=== PATIENT | female | born 1985 | race Caucasian/White ===

== ENCOUNTER 2016-09-08 00:27 | Emergency (ER) | payer OTHER ==
[~2016-09-08] VITALS: Ht 165.1 cm; Wt 56.8 kg
[~2016-09-08 00:27] MED LIST: ACET-1256 PO; BUDE1TAB PO; CPR500 PO; HYDR-5688 PO; MULT-506 PO; ONDA4TAB46 PO
[2016-09-08 00:42] VITALS: TEMP 36.8; Ht 165.1 cm; Wt 56.8 kg
[2016-09-08 01:27] LABS: HEMATOCRIT 35.2 % (37-47); MEAN CELL VOLUME 84.6 fL (80-100); MEAN CORPUSCULAR HEMOGLOBIN 29.1 pg (25-34); MEAN CORPUSCULAR HGB CONC 34.4 g/dl (32-36); PLATELET COUNT 368 K/uL (130-400); RED BLOOD COUNT 4.16 M/uL (4.2-5.4)
[2016-09-08 01:36] LABS: URINE APPEARANCE CLEAR (CLEAR); URINE BILIRUBIN NEG (NEG); URINE COLOR YELLOW; URINE NITRITE NEG (NEG); URINE PH 7.5 (4.5-7.5); UROBILINOGEN NEG (NEG)
[2016-09-08 01:41] LABS: MANUAL MICROSCOPIC REQUIRED? NO; REVIEW REQ? NO
[2016-09-08 01:48] LABS: BUN/CREATININE RATIO 16.1 (10-20); CALCIUM 9.6 mg/dl (8.5-10.1); CREATININE 0.68 mg/dl (0.60-1.20); POTASSIUM 3.7 mmol/L (3.5-5.1)
[2016-09-08 01:50] LABS: ALB/GLOB RATIO 0.9 (0.9-2)
[2016-09-08 01:52] LABS: INR 0.9 (0.9-1.1); PARTIAL THROMBOPLASTIN RATIO 1.1
--- NOTE | 2016-09-08 02:10 | DIAGNOSTIC IMAGING REPORT ---
ULTRASOUND OF THE PELVIS CLINICAL HISTORY: Vaginal bleeding. COMPARISON STUDY: Pelvic CT dated 06/16/2015. Pelvic MRI dated 05/17/2016. TECHNIQUE: Real-time, grayscale, and color flow sonography of the pelvis is performed both transabdominally and endovaginally. Images are reviewed in the transverse and longitudinal planes. FINDINGS: Uterus: The uterus is normal in size and echotexture, measuring 8.3 x 3.5 x 4.2 cm. Endometrium: The endometrium appears thickened and slightly heterogeneous, measuring up to 1.1 cm. There is trace fluid within the endometrial canal. Ovaries: The ovaries are normal in size and morphology. The right ovary measures 2.2 x 1.0 x 1.4 cm and the left ovary measures 1.9 x 1.7 x 2.5 cm. There are bilateral ovarian follicles. A round complex structure is seen in the left ovary measures up to 1.8 cm. This is indeterminate but appears to demonstrate internal flow on color imaging. Normal Doppler waveforms are shown within both ovaries. Pelvis: There is trace free fluid in the cul-de-sac. No concerning adnexal lesion is seen. IMPRESSION: 1. No acute sonographic amount is seen in the pelvis. 2. Trace free fluid is likely within physiologic limits. 3. There is an indeterminant 1.8 cm complex structure in the left ovary which appears to demonstrate internal flow. This is atypical for a complex/hemorrhagic follicle, and could potentially represent an endometrioma. A 3 month follow-up ultrasound is recommended for reassessment. Electronically signed by: Filiberto Peres M.D. 09/08/2016 2:08 AM Dictated Date/Time: 09/08/2016 2:02 AM
[2016-09-08 02:15] LABS: BASO % 0.4 %; BASO ABS # 0.04 K/uL (0-0.2); COMPLETE YES; EOS % 4.1 %; IG% 0.4 %; LYMPH ABS # 2.91 K/uL (1.2-3.4); MONO % 6.1 %
[2016-09-08 03:50] VITALS: BP 114/63; PULSE 72; O2SAT 98
--- NOTE | 2016-09-08 05:09 | GYNECOLOGICAL CONSULTATION ---
DATE OF CONSULTATION: 09/08/2016 HISTORY OF PRESENT ILLNESS: Nakia is a 31-year-old woman who presents to the ER with cramping and bleeding. The symptoms began early this evening initially with light spotting and then progressing to significant cramping. The cramping was midline and did not favor one side. The bleeding then progressed to passing clots and these are darker in color. At the time I have assessed her, her bleeding has somewhat decreased and her pain is significantly decreased. This is Nakia's first and had been uncomplicated prior to this evening. Her blood type is Rh positive, specifically A positive. She has, as mentioned, never been and has no past issues. PAST MEDICAL HISTORY: Significant for 2 issues. 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 She is not on current therapy and has never been on chemo or radiation or had surgery for this. She also has a diagnosis of Crohn's disease and is followed for this. She is not currently on medication for this. SOCIAL HISTORY: She is , nonsmoker, nondrinker. MEDICATIONS: vitamins. DRUG ALLERGIES: NICKEL. FAMILY HISTORY: Noncontributory. PHYSICAL EXAMINATION: VITAL SIGNS: Stable. She is afebrile. CHEST: Clear. CARDIOVASCULAR: Normal rate and rhythm. No audible murmur. ABDOMEN: Benign. She has no significant tenderness. No peritoneal irritation. No rebound and no masses are palpated. PELVIC: Done with nursing, reveals normal external genitalia. There is some dark blood on the outside of the vagina. Speculum exam is performed. On visualization of the cervix, there is some tissue in the cervix. This was grasped with a ring forceps, the tissue was sent to pathology. Cervix does show some dark bleeding from it, but there is certainly no hemorrhage going on. Bimanual exam reveals no tenderness in either adnexa and no cervical motion tenderness. Uterus is normal size. IMPRESSION AND PLAN: Reviewed. IMAGING AND LABORATORY DATA: Her quantitative hCG is 1817. Her ultrasound reveals a lining of 1.1 cm with no fetus in it. There is a small mass on the left ovary measuring 1.8 cm. There are no other masses in the adnexa; per radiology, possible complex hemorrhagic follicle versus endometrioma, no heart rate is noted in the adnexa. IMPRESSION AND PLAN: I believe we have removed tissue from the cervix. I think she is in the process of miscarriage. I did review the remote possibility of this being an ectopic ; however, I think the mass on the ovary does not represent this and certainly with the amount of bleeding she is having and as well with the tissue removed from the cervix, I think this is just a process of completion of miscarriage. She does not need RhoGAM as she is Rh positive. We will arrange for followup in the office with a quantitative hCG on Saturday, and I will see her on Saturday for a followup appointment. She was advised to call our answering service if there are any problems prior to this. MARCK
--- NOTE | 2016-09-08 05:35 | EMERGENCY ROOM VISIT NOTE ---
History First contact with patient: 01:06 Chief Complaint: VAGINAL BLEEDING Stated Complaint: MISCARRIAGE History of Present Illness The patient is a 31 year old female who presents to the Emergency Room with complaints of vaginal bleeding and cramping for the past few hours who is 7 weeks . This is her first . She follows at [facility]. Patient states she started bleeding a few hours ago. Patient denies chest pain , dyspnea, fever, chills, weakness. No prior pregnancies. Review of Systems See HPI for pertinent positives & negatives. A total of 10 systems reviewed and were otherwise negative. Past Medical/Surgical History Medical Problems: (1) Crohns disease (2) Liver mass (3) Lung nodule Social History Smoking Status: Former Smoker Alcohol Use: occasionally Marital Status: Housing Status: lives with significant other Occupation Status: employed Current/Historical Medications No Active Prescriptions or Reported Meds Allergies Coded Allergies: Nickel (Verified Allergy, Mild, RASH, 09/08/16) Physical Exam Vital Signs Date Time Temp Pulse Resp B/P Pulse Ox O2 Delivery O2 Flow Rate FiO2 09/08/16 03:50 72 18 114/63 98 09/08/16 02:15 68 18 114/63 98 Room Air 09/08/16 00:42 36.8 70 16 128/61 100 Room Air Pain Rating (0-10): 0 Physical Exam VITALS: Vitals are noted on the nurse's note and reviewed by myself. Vital signs stable. GENERAL: Pleasant anxious-appearing female, in no acute distress, nondiaphoretic , well-developed well-nourished. SKIN: Capillary reflex less than 2 seconds. HEENT: Normocephalic. PERRLA. EOMI. Nares patent. Mucous membranes moist. Neck is supple without nuchal rigidity. HEART: Regular rate and rhythm without murmurs gallops or rubs. LUNGS: Clear to auscultation bilaterally without wheezes, rales or rhonchi. No retractions or accessory muscle use. ABDOMEN: Positive bowel sounds x 4. Normal tympanic percussion. Soft, nontender, without masses or organomegaly. Bowers sign negative. No guarding or rebound tenderness. MUSCULOSKELETAL: No gross musculoskeletal defects. NEURO: Patient was alert and oriented to person place and time. Normal sensation to light and sharp touch. No focal neurological deficits. Medical Decision & Procedures Laboratory Results 09/08/16 01:09 Red Blood Count 4.16, Mean Corpuscular Volume 84.6, Mean Corpuscular Hemoglobin 29.1, Mean Corpuscular Hemoglobin Concent 34.4, Mean Platelet Volume 9.0, Neutrophils (%) (Auto) 59.0, Lymphocytes (%) (Auto) 30.0, Monocytes (%) (Auto) 6.1, Eosinophils (%) (Auto) 4.1, Basophils (%) (Auto) 0.4, Neutrophils # (Auto) 5.72, Lymphocytes # (Auto) 2.91, Monocytes # (Auto) 0.59, Eosinophils # (Auto) 0.40, Basophils # (Auto) 0.04 09/08/16 01:09 Test 09/08/16 01:05 09/08/16 01:09 Urine Color YELLOW Urine Appearance CLEAR (CLEAR) Urine pH 7.5 (4.5-7.5) Urine Specific Sargent 1.000 (1.000-1.030) Urine Protein NEG (NEG) Urine Glucose (UA) NEG (NEG) Urine Ketones NEG (NEG) Urine Occult Blood 3+ (NEG) Urine Nitrite NEG (NEG) Urine Bilirubin NEG (NEG) Urine Urobilinogen NEG (NEG) Urine Leukocyte Esterase NEG (NEG) Urine WBC (Auto) 0 /hpf (0-5) Urine RBC (Auto) >30 /hpf (0-4) Urine Hyaline Casts (Auto) 0 /lpf (0-5) Urine Epithelial Cells (Auto) 5-10 /lpf (0-5) Urine Bacteria (Auto) NEG (NEG) White Blood Count 9.70 K/uL (4.8-10.8) Red Blood Count 4.16 M/uL (4.2-5.4) Hemoglobin 12.1 g/dL (12.0-16.0) Hematocrit 35.2 % (37-47) Mean Corpuscular Volume 84.6 fL (80-100) Mean Corpuscular Hemoglobin 29.1 pg (25-34) Mean Corpuscular Hemoglobin Concent 34.4 g/dl (32-36) Platelet Count 368 K/uL (130-400) Mean Platelet Volume 9.0 fL (7.4-10.4) Neutrophils (%) (Auto) 59.0 % Lymphocytes (%) (Auto) 30.0 % Monocytes (%) (Auto) 6.1 % Eosinophils (%) (Auto) 4.1 % Basophils (%) (Auto) 0.4 % Neutrophils # (Auto) 5.72 K/uL (1.4-6.5) Lymphocytes # (Auto) 2.91 K/uL (1.2-3.4) Monocytes # (Auto) 0.59 K/uL (0.11-0.59) Eosinophils # (Auto) 0.40 K/uL (0-0.5) Basophils # (Auto) 0.04 K/uL (0-0.2) RDW Standard Deviation 37.5 fL (36.4-46.3) RDW Coefficient of Variation 12.1 % (11.5-14.5) Immature Granulocyte % (Auto) 0.4 % Immature Granulocyte # (Auto) 0.04 K/uL (0.00-0.02) Red Blood Cell Morphology Unremarkable Prothrombin Time 10.0 SECONDS (9.0-12.0) Prothromb Time International Ratio 0.9 (0.9-1.1) Activated Partial Thromboplast Time 27.7 SECONDS (21.0-31.0) Partial Thromboplastin Ratio 1.1 Anion Gap 9.0 mmol/L (3-11) Est Creatinine Clear Calc Drug Dose 109.5 ml/min Estimated GFR () 137.0 Estimated GFR (Non- 118.2 BUN/Creatinine Ratio 16.1 (10-20) Calcium Level 9.6 mg/dl (8.5-10.1) Total Bilirubin 0.1 mg/dl (0.2-1) Aspartate Amino Transf (AST/SGOT) 10 U/L (15-37) Alanine Aminotransferase (ALT/SGPT) 21 U/L (12-78) Alkaline Phosphatase 79 U/L (45-117) Total Protein 7.8 gm/dl (6.4-8.2) Albumin 3.6 gm/dl (3.4-5.0) Globulin 4.2 gm/dl (2.5-4.0) Albumin/Globulin Ratio 0.9 (0.9-2) Human Chorionic Gonadotropin, Quant 1817 mIU/mL ED Course Prior records/ancillary studies reviewed. Triage Nursing notes reviewed. Additional history obtained from the family. The patient's history was concerning for vaginal bleeding and abdominal pain. Differential diagnosis: Etiologies such as ectopic , dysfunction uterine bleeding, bleeding dyscrasia, trauma, infection, as well as others were entertained. Physical examination: As above. Vitals signs revealed stable. ER treatment provided: IV fluids On reassessment the patient felt better. Diagnostic interpretation by me: The labs revealed the patient to the Rh A+. CBC, coagulation studies, and chemistries were unremarkable. Urine test was +. Urinalysis revealed no sign of infection. Quantitative hCG was 1800 Imaging studies: Ultrasound as above ULTRASOUND OF THE PELVIS CLINICAL HISTORY: Vaginal bleeding. COMPARISON STUDY: Pelvic CT dated 06/16/2015. Pelvic MRI dated 05/17/2016. TECHNIQUE: Real-time, grayscale, and color flow sonography of the pelvis is performed both transabdominally and endovaginally. Images are reviewed in the transverse and longitudinal planes. FINDINGS: Uterus: The uterus is normal in size and echotexture, measuring 8.3 x 3.5 x 4.2 cm. Endometrium: The endometrium appears thickened and slightly heterogeneous, measuring up to 1.1 cm. There is trace fluid within the endometrial canal. Ovaries: The ovaries are normal in size and morphology. The right ovary measures 2.2 x 1.0 x 1.4 cm and the left ovary measures 1.9 x 1.7 x 2.5 cm. There are bilateral ovarian follicles. A round complex structure is seen in the left ovary measures up to 1.8 cm. This is indeterminate but appears to demonstrate internal flow on color imaging. Normal Doppler waveforms are shown within both ovaries. Pelvis: There is trace free fluid in the cul-de-sac. No concerning adnexal lesion is seen. IMPRESSION: 1. No acute sonographic amount is seen in the pelvis. 2. Trace free fluid is likely within physiologic limits. 3. There is an indeterminant 1.8 cm complex structure in the left ovary which appears to demonstrate internal flow. This is atypical for a complex/hemorrhagic follicle, and could potentially represent an endometrioma. A 3 month follow-up ultrasound is recommended for reassessment. Electronically signed by: Filiberto Peres M.D. 09/08/2016 2:08 AM Consultation: A consultation was placed with the cupola patcher physician, Dr. Porras. The case was discussed and diagnostics were reviewed. He believes that the patient is miscarrying. He does not think there is no ectopic . Please see his dictation for further information regarding history and plan. This appears to be consistent with incomplete miscarriage. Patient will be followed up by OB this week. She is advised to return to the immediate for heavy bleeding, pain, fevers, worsening signs or symptoms or as needed. By the evaluation outlined above emergent etiologies such as bleeding dyscrasia, ectopic , trauma, as well as others were deemed relatively unlikely. The pt informed about the findings as listed above. All questions were answered and pleased with the treatment. Return instructions were outlined and the patient was discharged in stable condition. Referral: The patient was referred to [facility] T[facility]AS[facility] for follow-up in 2 to 3 days for a recheck of her current condition. Case reviewed with my attending Medical Decision As below Impression Primary Impression: Incomplete miscarriage Departure Information Dispostion Home / Self-Care Condition GOOD Prescriptions No Active Prescriptions or Reported Meds Forms WORK / SCHOOL INSTRUCTIONS, HOME CARE DOCUMENTATION FORM, IMPORTANT VISIT INFORMATION Patient Instructions Miscarriage Nm, [facility] Additional Instructions Have your blood drawn on Saturday. Keep your appointment as scheduled with OB/ APPLICATION ARCHITECT MANAGER. Ibuprofen(Motrin, Advil) may be used for fever or pain. Use 600mg every six hours as needed. Take with food. Avoid using more than 2400mg in a 24 hour period. Do not use 2400mg per day for more than three consecutive days without physician direction. Prolonged inappropriate use can lead to stomach upset or ulcers. (AND/OR) Acetaminophen(Tylenol) may be used for fever or pain. Use 1000mg every six hours as needed. Avoid using more than 3000mg in a 24 hour period. Rest and drink plenty of fluids as tolerated. Continue current medications. Avoid strenuous activities and anything that worsens your pain. Resume normal activities once your symptoms resolve. Return to the ER immediately for worsening or persistent heavy vaginal bleeding , pelvic pain, abdominal pain, vomiting, fevers, chest pains, difficulty breathing, worsening of your condition, or as needed. Follow up with your COUNTY TREASURER in 2-3 days for a recheck of your current condition.
== END 2016-09-08 03:50 | disposition home or self-care (01) ==
LOC: EDBD 00:27 → C.EDB 00:29
DX: O03.30 Unspecified complication following incomplete spontaneous abortion (principal); Z3A.01 Less than 8 weeks gestation of pregnancy; K50.90 Crohn's disease, unspecified, without complications; R16.0 Hepatomegaly, not elsewhere classified; R91.1 Solitary pulmonary nodule; Z87.891 Personal history of nicotine dependence; Z91.09 Other allergy status, other than to drugs and biological substances

== ENCOUNTER → 2016-09-10 | Outpatient (CLI) | payer OTHER | END | disposition home or self-care (01) | LOC: C.LAB1850 13:38 | PROVIDERS: ATTEND Obstetrics & Gynecology | DX: O02.1 Missed abortion (principal) ==

== ENCOUNTER → 2016-09-13 | Outpatient (CLI) | payer OTHER | END | disposition home or self-care (01) | LOC: C.LAB1850 12:27 | PROVIDERS: ATTEND Obstetrics & Gynecology | DX: O02.1 Missed abortion (principal) ==

== ENCOUNTER → 2016-09-27 | Outpatient (CLI) | payer OTHER ==
[~2016-09-27] MED LIST changes: -ACET-1256 PO; -BUDE1TAB PO; -CPR500 PO; -HYDR-5688 PO; +MAGNEVIST IV PRN; -MULT-506 PO; -ONDA4TAB46 PO; +OPTIRAY 320 IV PRN
--- NOTE | 2016-09-27 14:13 | DIAGNOSTIC IMAGING REPORT ---
MRI OF THE ABDOMEN COMBO CLINICAL HISTORY: Hepatic lesions.. COMPARISON STUDY: 05/17/2016. TECHNIQUE: MRI of the abdomen is performed transverse T1 and T2-weighted sequences in the axial and coronal planes. Contrast enhanced sequences were acquired following the IV administration of 20 cc Magnevist. FINDINGS: Lower chest: No pleural effusion is identified. The heart is normal in size. Liver: Multiple hepatic densities and/or lesions are unchanged. Signal characteristics on all images. Similar compared to the prior study. There is no new interval or progressive process. Enhancement characteristics are similar. Pancreas is unremarkable. Kidneys demonstrate a small cortical cyst lower pole right kidney but are otherwise unremarkable. The adrenal glands are unremarkable. Limited visibility of the lower abdominal and upper pelvic bowel pattern suggests a potential developing small bowel obstructive change and or distention. Reference is made to MRI of the pelvis as further evaluation. Gallbladder: Unremarkable. Spleen: Normal in size and signal intensity. Pancreas: Unremarkable. Adrenal glands: Unremarkable. Peritoneum: Trace ascites within the paracolic gutter regions Lymphadenopathy: None. Skeletal structures: Visualized skeletal structures times are normal marrow signal intensity. IMPRESSION: 1. Unchanged hepatic masses. 2. No change in size, configuration, or. Behavioral characteristics of the hepatic lesions. 3. Interval small bowel distention and/or partial small bowel obstruction with reference made to MRI of the pelvis as follow-up 4. Trace ascites within the paracolic gutters Electronically signed by: Jeremy Nash M.D. 09/27/2016 2:12 PM Dictated Date/Time: 09/27/2016 2:02 PM
--- NOTE | 2016-09-27 14:25 | DIAGNOSTIC IMAGING REPORT ---
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 An MRI of the upper abdomen will be reported separately. There are significantly dilated distal small bowel loops. There is bowel wall thickening involving the distal ileum. There is a distal ileal stricture measuring 4 cm in length. The findings are consistent with the history of Crohn's disease. There are no abnormal adnexal masses. No uterine abnormalities are visualized. There are no pathologically enlarged pelvic lymph nodes. There is no pathologic marrow replacement. IMPRESSION: 1. Thick walled terminal ileum with a distal ileal stricture. This results in a partial small bowel obstruction with dilatation of the more proximal small bowel with loops measuring up to 4 cm. The findings are consistent with the patient's known Crohn's disease. Electronically signed by: Mauri Cevallos M.D. 09/27/2016 2:23 PM Dictated Date/Time: 09/27/2016 2:15 PM
--- NOTE | 2016-09-27 16:07 | DIAGNOSTIC IMAGING REPORT ---
CT OF THE CHEST WITH IV CONTRAST CLINICAL HISTORY: Hepatic epithelioid hemangioendothelioma. COMPARISON STUDY: Chest CT May 17, 2016. TECHNIQUE: Following IV administration of 93 mL of Optiray-320, helical axial images of the chest were obtained. Images were viewed in the axial, sagittal and coronal planes. IV contrast was administered without complication. CT DOSE: 219.67 mGy.cm FINDINGS: Innumerable pulmonary nodules are unchanged since exam of May 14, 2016. An index right lower lobe nodule shown image 39 of 70 measures 7 mm. An index left lower lobe nodule shown image 42 measures 7 mm. No new nodules are identified. There is no thoracic lymphadenopathy. The size of the heart is normal. There is no pericardial effusion. Several hypodense hepatic lesions are similar to prior exam of May 17, 2016. An index right hepatic lobe lesion shown on image 64 measures 2.3 cm. A index segment 4A lesion shown on image 53 measures 2.8 cm. There is a suspected small amount of ascites along inferior right hepatic lobe. No suspicious osseous lesions are present. IMPRESSION: 1. No significant change in innumerable pulmonary metastases since CT of May 17, 2016. 2. No significant change in multiple hypodense hepatic lesions. 3. No thoracic lymphadenopathy. 4. Suspected small amount of perihepatic ascites. Electronically signed by: Pete Quintero M.D. 09/27/2016 4:06 PM Dictated Date/Time: 09/27/2016 12:57 PM
== END | disposition home or self-care (01) ==
LOC: C.CTS 12:37
PROVIDERS: ATTEND Family Medicine
DX: C49.9 Malignant neoplasm of connective and soft tissue, unspecified (principal); K63.89 Other specified diseases of intestine; R18.8 Other ascites

== ENCOUNTER → 2016-10-02 | Outpatient (CLI) | payer OTHER | END | disposition home or self-care (01) | LOC: C.LAB1850 10:00 | PROVIDERS: ATTEND Obstetrics & Gynecology | DX: O03.9 Complete or unspecified spontaneous abortion without complication (principal) ==

== ENCOUNTER → 2017-01-04 | Outpatient (CLI) | payer OTHER ==
[2017-01-04 11:16] LABS: URINE APPEARANCE CLEAR (CLEAR); URINE BILIRUBIN NEG (NEG); URINE COLOR YELLOW; URINE EPITHELIAL CELL AUTO 20-30 /lpf (0-5); URINE NITRITE NEG (NEG); URINE PH 6.5 (4.5-7.5); UROBILINOGEN NEG (NEG)
[2017-01-04 11:17] LABS: MANUAL MICROSCOPIC REQUIRED? NO; REVIEW REQ? NO
[2017-01-04 12:43] LABS: BASO % 0.4 %; BASO ABS # 0.03 K/uL (0-0.2); COMPLETE YES; EOS % 2.2 %; HEMATOCRIT 36.8 % (37-47); IG% 0.2 %; LYMPH % 15.6 %; MEAN CORPUSCULAR HEMOGLOBIN 28.5 pg (25-34); MEAN PLATELET VOLUME 9.6 fL (7.4-10.4); MONO % 8.2 %; NEUT % 73.4 %; PLATELET COUNT 330 K/uL (130-400); RED BLOOD COUNT 4.38 M/uL (4.2-5.4); WHITE BLOOD COUNT 8.31 K/uL (4.8-10.8)
== END | disposition home or self-care (01) ==
LOC: C.LAB1850 10:44
PROVIDERS: ATTEND Obstetrics & Gynecology
DX: O09.291 Supervision of pregnancy with other poor reproductive or obstetric history, first trimester (principal); Z3A.00 Weeks of gestation of pregnancy not specified

== ENCOUNTER → 2017-01-04 | Outpatient (CLI) | payer OTHER ==
[2017-01-07 23:49] LABS: CHLAMYDIA TRACH RNA*** NOT DETECTED (NOT DETECTED); GC (NEIS GONORRHOEAE)RNA** NOT DETECTED (NOT DETECTED)
== END | disposition home or self-care (01) ==
LOC: C.LABSPEC 13:42
PROVIDERS: ATTEND Obstetrics & Gynecology
DX: O09.291 Supervision of pregnancy with other poor reproductive or obstetric history, first trimester (principal); Z3A.00 Weeks of gestation of pregnancy not specified

== ENCOUNTER → 2017-02-12 | Outpatient (CLI) | payer OTHER ==
--- NOTE | 2017-02-12 10:37 | DIAGNOSTIC IMAGING REPORT ---
ULTRASOUND RIGHT UPPER QUADRANT ABDOMEN CLINICAL HISTORY: Sarcoma. COMPARISON STUDY: Abdominal CT dated 06/16/2015. Abdominal MRI dated 09/27/16. TECHNIQUE: Real-time, grayscale, and color flow sonography of the right upper quadrant of the abdomen was performed. Images are reviewed in the transverse and longitudinal planes. FINDINGS: Liver: The liver is normal in size and echotexture. There is no intrahepatic biliary ductal dilatation. The main portal vein is patent. There are 2 subtle hepatic lesions identified. A lesion in the medial left lobe measures up to 3.2 cm, and a lesion in the anterior right lobe measures up to 1.9 cm. These are likely unchanged from the 09/27/2016 MRI with differences in technique are taken into account. There is no sonographic evidence of progressive disease. Gallbladder: The gallbladder is normal in appearance. No gallstones are identified. There is no gallbladder wall thickening or pericholecystic fluid. A sonographic Bowers's sign is reportedly absent. The common bile duct measures up to 0.2 cm in diameter. Pancreas: Visualized portions of the pancreatic head and body are normal in appearance. Right kidney: Survey images of the right kidney demonstrate normal size and echotexture. There is no hydronephrosis. Ascites: None. IMPRESSION: 1. There are 2 subtle hepatic lesions identified, likely unchanged from the 09/27/2016 MRI when differences in technique are taken into account. There is no sonographic evidence of progressive disease. 2. No gallstones are identified. Electronically signed by: Filiberto Peres M.D. 02/12/2017 10:35 AM Dictated Date/Time: 02/12/2017 10:21 AM
== END | disposition home or self-care (01) ==
LOC: C.ULTR 09:28
PROVIDERS: ATTEND Family Medicine
DX: C49.9 Malignant neoplasm of connective and soft tissue, unspecified (principal); K76.9 Liver disease, unspecified

== ENCOUNTER → 2017-03-01 | Outpatient (CLI) | payer OTHER ==
[2017-03-01 12:14] LABS: GTGD 50 Grams
== END | disposition home or self-care (01) ==
LOC: C.LAB1850 10:35
PROVIDERS: ATTEND Obstetrics & Gynecology
DX: O09.291 Supervision of pregnancy with other poor reproductive or obstetric history, first trimester (principal); Z3A.00 Weeks of gestation of pregnancy not specified

== ENCOUNTER → 2017-05-17 | Outpatient (CLI) | payer OTHER ==
[2017-05-17 11:05] LABS: URINE APPEARANCE CLEAR (CLEAR); URINE BILIRUBIN NEG (NEG); URINE COLOR YELLOW; URINE EPITHELIAL CELL AUTO >30 /lpf (0-5); URINE NITRITE NEG (NEG); URINE SPECIFIC GRAVITY 1.009 (1.000-1.030); UROBILINOGEN NEG (NEG)
[2017-05-17 11:09] LABS: MANUAL MICROSCOPIC REQUIRED? NO; REVIEW REQ? NO
[2017-05-17 13:09] LABS: HEMATOCRIT 32.7 % (37-47)
[2017-05-17 14:13] LABS: GTGD 50 Grams
== END | disposition home or self-care (01) ==
LOC: C.LAB1850 09:53
PROVIDERS: ATTEND Obstetrics & Gynecology
DX: O09.292 Supervision of pregnancy with other poor reproductive or obstetric history, second trimester (principal)

== ENCOUNTER 2017-08-09 05:56 | Inpatient (IN) | payer OTHER ==
[~2017-08-09] VITALS: Ht 162.6 cm; Wt 80.0 kg
[2017-08-09] MEDS ORDERED: LACTATED RINGER'S 1000ML 1,000 ML IV PRN (06:45)
[2017-08-09] MEDS ORDERED: PENICILLIN G POTASSIUM IV 6 MU in DEXTROSE 5% 250ML 250 ML IV ONE (06:45)
[2017-08-09] MEDS ORDERED: MISOPROSTOLTAB 50 MCG TAB PO PRN (06:45)
[2017-08-09] MEDS ORDERED: PRENTAB26 PO (06:55)
[2017-08-09] MEDS ORDERED: LACTATED RINGER'S 1000ML 500 ML IV PRN ×2 (06:59→17:55)
[2017-08-09] MEDS ORDERED: MAGN400T6 PO (07:00)
[2017-08-09] MEDS ORDERED: CYAN100T PO (07:01)
[2017-08-09] MEDS ORDERED: OMEG10007 PO (07:01)
[2017-08-09] MEDS ORDERED: DOXY25TA7 (07:05)
[2017-08-09] MEDS ORDERED: MISCCAP80 (07:05)
[2017-08-09] MEDS ORDERED: FERR1TAB23 (07:05)
[2017-08-09] MEDS ORDERED: DIGE1CAP10 (07:05)
[2017-08-09] MEDS ORDERED: ZINC1CAP PO (07:05)
[2017-08-09] MEDS ORDERED: GARL1CAP6 (07:05)
[2017-08-09] MEDS ORDERED: CHOL1000 PO (07:05)
[2017-08-09] MEDS ORDERED: PYRI100T4 PO (07:05)
[2017-08-09] MEDS ORDERED: FLAX10007 (07:05)
[2017-08-09 07:06] VITALS: Ht 162.6 cm; Wt 80.0 kg
[2017-08-09 07:12] LABS: HEMATOCRIT 34.7 % (37-47); MEAN CELL VOLUME 86.1 fL (80-100); MEAN CORPUSCULAR HEMOGLOBIN 29.5 pg (25-34); MEAN CORPUSCULAR HGB CONC 34.3 g/dl (32-36); MEAN PLATELET VOLUME 9.2 fL (7.4-10.4); PLATELET COUNT 244 K/uL (130-400); RED BLOOD COUNT 4.03 M/uL (4.2-5.4); WHITE BLOOD COUNT 10.64 K/uL (4.8-10.8)
[2017-08-09] MEDS: LACTATED RINGER'S 1000ML 1,000 ML IV SCH ×3 (07:41→18:06)
[2017-08-09] MEDS: OXYTOCIN 30 UNITS/500ML NSS IV PRN (07:47)
[2017-08-09] MEDS: PENICILLIN G POTASSIUM IV 3 MU in DEXTROSE 5% 100ML 100 ML IV PRN ×4 (12:07→23:59)
[2017-08-09] MEDS ORDERED: FENTANYL 2MCG/ML ROPIV 1.25MG/ML 100ML BAG EPI ONE (15:29)
[2017-08-09] MEDS ORDERED: BUPIVACAINE 0.25% 30 ML VIAL ONE (15:29)
[2017-08-09] MEDS ORDERED: EpHEDrine SULFATE INJ 50 MG/ML AMP ONE (15:29)
[2017-08-09] MEDS ORDERED: FENTANYL CITRATE INJ 50 MCG/1 ML 2 ML VIAL ONE (15:30)
[2017-08-09] MEDS ORDERED: NALOXONE HCL INJ 1 MG in SODIUM CHLORIDE 0.9% 1000ML 1,000 ML IV PRN (17:55)
[2017-08-09] MEDS ORDERED: NALOXONE HCL INJ 0.4 MG/1 ML VIAL/CARP IV PRN (18:00)
[2017-08-09] MEDS ORDERED: NALBUPHINE HCL INJ 10 MG/ML AMP IV PRN (18:00)
[2017-08-09] MEDS ORDERED: ONDANSETRON INJ 2 MG/ML 2 ML VIAL IV PRN (18:00)
[2017-08-09] MEDS ORDERED: EpHEDrine SULFATE INJ 50 MG/ML AMP IV PRN (18:00)
[2017-08-09] MEDS ORDERED: DiphenhydrAMINE HCL 50 MG/ML VIAL IV PRN (18:00)
[2017-08-09] MEDS ORDERED: PROMETHAZINE HCL INJ 25 MG in SODIUM CHLORIDE 0.9% 50ML 50 ML IV PRN (18:00)
[2017-08-09] MEDS: FENTANYL 2MCG/ML ROPIV 1.25MG/ML 100ML BAG EPI PRN (18:55)
[2017-08-10] VITALS (16 sets, daily range): BP systolic 114–121; BP diastolic 56–74; PULSE 59–74; TEMP 36.4–36.8; O2SAT 96–98
[2017-08-10] MEDS: FENTANYL 2MCG/ML ROPIV 1.25MG/ML 100ML BAG EPI PRN ×2 (01:30→06:59)
[2017-08-10] MEDS: LACTATED RINGER'S 1000ML 1,000 ML IV SCH (03:36)
[2017-08-10] MEDS: PENICILLIN G POTASSIUM IV 3 MU in DEXTROSE 5% 100ML 100 ML IV PRN (04:01)
[2017-08-10] MEDS: OXYTOCIN 30 UNITS/500ML NSS IV PRN (05:50)
[2017-08-10] MEDS ORDERED: CEFAZOLIN IV 2,000 MG in SYRINGE 0 ML IV SCH (06:00)
[2017-08-10] MEDS ORDERED: LACTATED RINGER'S 1000ML 1,000 ML IV ONE (06:52)
[2017-08-10] MEDS ORDERED: CITRIC ACID/SODIUM CITRATE 15 ML UDC PO ONE (07:00)
[2017-08-10] MEDS ORDERED: LIDOCAINE/EPINEPHRINE 2% 1:200,000 20 ML SDV ONE (07:20)
[2017-08-10] MEDS ORDERED: MORPHINE SULFATE PF 2MG/2ML SYR ONE (07:20)
[2017-08-10] MEDS ORDERED: MORPHINE SULFATE 1MG/1ML 30ML VIAL IV ONE (07:25)
--- NOTE | 2017-08-10 07:40 | HISTORY & PHYSICAL EXAMINATION ---
DATE OF ADMISSION: 08/09/2017 HISTORY OF PRESENT ILLNESS: Nakia presented for Dr. Montgomery, the shift prior to mine, with ruptured membranes. She was not actively mike, so Pitocin was started. Her cervix was long, thick and closed. Eventually, her cervix dilated to 1 cm; however, the contractions were difficult to monitor, so an IUPC was placed. The patient was group B strep positive, so antibiotics were started. Adequate Pitocin contractions were documented and the patient did reach 3-4 cm at 2:30 in the morning on August 10; however, by 7:00 in the morning, she was still 4 cm and the fetus had molding. Due to the slow progress and 24 hours of Pitocin and 4 hours of no real change, I recommended section and they agreed. PAST MEDICAL HISTORY: She does have a history of a miscarriage in the past and she also has a history of a liver mass as well. The patient also has a history of Crohn's disease. SOCIAL HISTORY: Nonsmoker, nondrinker. FAMILY HISTORY: She is . REVIEW OF SYSTEMS: Negative. PHYSICAL EXAMINATION: VITAL SIGNS: Stable. She is afebrile. CHEST: Clear. CARDIOVASCULAR: Normal rate and rhythm. No audible murmur. ABDOMEN: Gravid. CERVIX: Exam 4 cm, -1. molding palpated. IMPRESSION AND PLAN: Recommended . She agrees. I did discuss the option of labor. Discussed risks including bleeding, infection, injury to bowel, bladder, ureter, vessels, deep vein thrombosis and pulmonary embolus. Discussed increased infection risk with prolonged rupture of membranes and labor. The patient agrees. All risks, benefits, and alternatives discussed.
[2017-08-10] MEDS ORDERED: CARBOPROST TROMETHAMINE 250 MCG/ML AMP IM ONE (08:08)
[2017-08-10] MEDS ORDERED: MIDAZOLAM HCL 1 MG/ML 2ML VIAL ONE (08:10)
--- NOTE | 2017-08-10 08:35 | [facility] Post Operative Brief Note ---
Immediate Operative Summary Operative Date Aug 10, 2017. Pre-Operative Diagnosis Prolonged rupture of membranes Failure to progress Post-Operative Diagnosis same Procedure(s) Performed Low transverse section Surgeon Dr Porras Retail Merchandising Coordinator Surgeon(s) Liyah Shell RN Estimated Blood Loss 500 mL Findings Normal uterus and adnexa Specimens cord gases cord blood Drains Zabala catheter Anesthesia epidural Complication(s) None Disposition L&D
[2017-08-10] MEDS ORDERED: HYDROCORTISONE ACETATE 25 MG SUPP PR PRN (08:45)
[2017-08-10] MEDS ORDERED: SUPERCREAM 0.870 % 15GM JAR EXT PRN (08:45)
[2017-08-10] MEDS ORDERED: OXYCODONE/ACETAMINOPHEN 5-325 TAB PO PRN ×2 (08:45)
[2017-08-10] MEDS ORDERED: LANOLIN OINT EXT PRN ×2 (08:45)
[2017-08-10] MEDS ORDERED: ZOLPIDEM TARTRATE 5 MG TAB PO PRN (08:45)
[2017-08-10] MEDS ORDERED: DiphenhydrAMINE HCL 50 MG/ML VIAL IV PRN ×2 (08:45→10:00)
[2017-08-10] MEDS ORDERED: BENZOCAINE 20% AER SPR 82.5 GM CAN EXT PRN (08:45)
[2017-08-10] MEDS ORDERED: IBUPROFEN 600 MG TAB PO PRN (08:45)
[2017-08-10] MEDS ORDERED: ONDANSETRON INJ 2 MG/ML 2 ML VIAL IV PRN ×3 (08:45→10:00)
[2017-08-10] MEDS ORDERED: KETOROLAC TROMETHAMINE 30 MG/ML VIAL IV. PRN (08:45)
[2017-08-10] MEDS ORDERED: DIPHTHERIA/TETANUS/PERTUSSIS 0.5 ML SYR/VIAL IM. ONE (08:45)
[2017-08-10] MEDS ORDERED: PROMETHAZINE HCL INJ 25 MG/ML 1 ML VIAL ONE (09:03)
[2017-08-10] MEDS ORDERED: ONDANSETRON INJ 2 MG/ML 2 ML VIAL ONE (09:03)
[2017-08-10] MEDS ORDERED: PHENYLEPHRINE HCL INJ 10 MG/ML VIAL ONE (09:03)
--- NOTE | 2017-08-10 09:21 | Anesthesia Procedure Note ---
Anesthesia Epidural Removal Nt Date & Time Aug 10, 2017 at 09:20 Vital Signs Pain Intensity: 0.0 Notes Mental Status: alert / awake / arousable, participated in evaluation Nausea / Vomiting: adequately controlled Pain: adequately controlled Airway Patency, RR, SpO2: stable & adequate BP & HR: stable & adequate Hydration State: stable & adequate Neuraxial Anesthesia: was administered Anesthetic Complications: no major complications apparent, pt satisfied with anesthetic care Epidural: removed without complications, with tip intact
[2017-08-10] MEDS ORDERED: KETOROLAC TROMETHAMINE 30 MG/ML VIAL ONE (09:22)
--- NOTE | 2017-08-10 09:26 | Anesthesiology Progress Note ---
Anesthesia Post Op Note Date & Time Aug 10, 2017 at 09:26 Vital Signs Pain Intensity: 0.0 Notes Mental Status: alert / awake / arousable, participated in evaluation Nausea / Vomiting: adequately controlled Pain: adequately controlled Airway Patency, RR, SpO2: stable & adequate BP & HR: stable & adequate Hydration State: stable & adequate Neuraxial Anesthesia: was administered, sensory block is resolving Anesthetic Complications: no major complications apparent
[2017-08-10] MEDS ORDERED: EpHEDrine SULFATE INJ 50 MG/ML AMP IV PRN ×2 (09:30→09:45)
[2017-08-10] MEDS ORDERED: MoRPHine SULFATE 2 MG/ML CARP IV PRN (09:30)
[2017-08-10] MEDS ORDERED: NO NARCOTICS OR SEDATIVES SCH (09:30)
[2017-08-10] MEDS ORDERED: DC INTRASPINAL MORPHINE PRN (09:30)
[2017-08-10] MEDS ORDERED: CONTINUE MEDICATION ONE (09:30)
[2017-08-10] MEDS ORDERED: ATROPINE SULFATE 0.1 MG/ML 5ML SYR IV PRN (09:30)
[2017-08-10] MEDS ORDERED: MoRPHine SULFATE PF 1 MG/ML 10 ML AMP/VIAL EPI PRN (09:30)
[2017-08-10] MEDS ORDERED: NALOXONE HCL INJ 0.4 MG/1 ML VIAL/CARP IV PRN (09:45)
[2017-08-10] MEDS ORDERED: ACETAMINOPHEN 1000 MG/100 ML IV IV ONE (09:45)
[2017-08-10] MEDS: SIMETHICONE 80 MG CHEW PO SCH ×3 (10:39→19:26)
[2017-08-10] MEDS: OXYTOCIN INJ 20 UNITS in LACTATED RINGER'S 1000ML 1,000 ML IV SCH ×2 (11:32→19:31)
[2017-08-10] MEDS: KETOROLAC TROMETHAMINE 30 MG/ML VIAL IV. PRN (18:37)
[2017-08-10] MEDS: DOCUSATE SODIUM 100 MG CAP PO SCH (19:26)
[2017-08-11] VITALS (11 sets, daily range): BP systolic 104–130; BP diastolic 65–79; PULSE 68–76; TEMP 36.3–36.6; O2SAT 95–97
[2017-08-11] MEDS: KETOROLAC TROMETHAMINE 30 MG/ML VIAL IV. PRN ×2 (00:32→06:24)
[2017-08-11 06:17] LABS: HEMATOCRIT 28.5 % (37-47); MEAN CELL VOLUME 87.7 fL (80-100); MEAN CORPUSCULAR HEMOGLOBIN 29.5 pg (25-34); MEAN CORPUSCULAR HGB CONC 33.7 g/dl (32-36); MEAN PLATELET VOLUME 9.2 fL (7.4-10.4); PLATELET COUNT 171 K/uL (130-400); RED BLOOD COUNT 3.25 M/uL (4.2-5.4); WHITE BLOOD COUNT 9.03 K/uL (4.8-10.8)
[2017-08-11 06:52] LABS: BASO % 0.2 %; BASO ABS # 0.02 K/uL (0-0.2); COMPLETE YES; EOS % 2.7 %; IG% 0.6 %; LYMPH % 19.4 %; LYMPH ABS # 1.75 K/uL (1.2-3.4); MONO % 8.6 %; NEUT % 68.5 %
[2017-08-11] MEDS ORDERED: OXYCODONE/ACETAMINOPHEN 5-325 TAB PO PRN (07:00)
[2017-08-11] MEDS ORDERED: DiphenhydrAMINE HCL 50 MG/ML VIAL IV PRN (07:00)
[2017-08-11] MEDS ORDERED: ZOLPIDEM TARTRATE 5 MG TAB PO PRN (07:00)
[2017-08-11] MEDS ORDERED: KETOROLAC TROMETHAMINE 30 MG/ML VIAL IV. PRN (07:00)
[2017-08-11] MEDS: DOCUSATE SODIUM 100 MG CAP PO SCH ×2 (08:04→20:22)
[2017-08-11] MEDS: SIMETHICONE 80 MG CHEW PO SCH ×4 (08:04→20:22)
--- NOTE | 2017-08-11 08:17 | Progress Note ---
Subjective Aug 11, 2017. Subjective conversation w/ patient, physical exam Ambulation: limited ambulation Voiding: knott catheter in place Passing Gas: Yes Diet Tolerance: Regular Diet Lochia: Small Feeding Type: Breast Feeding Pain: ok pain control but has not been walking yet Objective Vital Signs Date Time Temp Pulse Resp B/P (MAP) Pulse Ox O2 Delivery O2 Flow Rate FiO2 08/11/17 06:45 16 97 08/11/17 05:54 16 96 08/11/17 04:45 16 96 08/11/17 04:15 36.5 73 16 106/66 (79) 95 Room Air 08/11/17 03:45 16 95 08/11/17 02:45 16 96 08/11/17 01:45 16 96 08/11/17 00:45 16 96 08/10/17 23:45 16 96 08/10/17 23:20 36.5 71 16 121/74 (90) 96 Room Air 08/10/17 23:20 96 Room Air 08/10/17 22:45 16 96 08/10/17 21:45 16 96 08/10/17 20:45 16 96 08/10/17 19:45 16 96 08/10/17 19:20 36.7 74 16 114/68 (83) 96 Room Air 08/10/17 18:45 20 97 08/10/17 17:45 20 96 08/10/17 16:45 20 98 08/10/17 15:45 16 97 08/10/17 15:15 36.4 59 16 116/74 (88) 08/10/17 14:45 16 98 08/10/17 13:45 16 96 08/10/17 12:45 20 98 08/10/17 11:45 16 98 08/10/17 11:45 98 Room Air 08/10/17 11:45 98 Room Air 08/10/17 11:45 36.8 73 16 116/56 (76) 97 Room Air Physical Exam General Appearance: WELL-APPEARING, WD/WN, NO APPARENT DISTRESS Respiratory/Chest: lungs clear Cardiovascular: regular rate, rhythm Abdomen: non tender, soft Fundus: Firm, Relation to Umbilicus (2 down) Incision Description: Clean, Dry & Intact (dressing, pt nursing, could not see incision well) Extremities: non-tender Laboratory Results Last 24 Hours Test 08/11/17 06:08 White Blood Count 9.03 K/uL Red Blood Count 3.25 M/uL Hemoglobin 9.6 g/dL Hematocrit 28.5 % Mean Corpuscular Volume 87.7 fL Mean Corpuscular Hemoglobin 29.5 pg Mean Corpuscular Hemoglobin Concent 33.7 g/dl Platelet Count 171 K/uL Mean Platelet Volume 9.2 fL Neutrophils (%) (Auto) 68.5 % Lymphocytes (%) (Auto) 19.4 % Monocytes (%) (Auto) 8.6 % Eosinophils (%) (Auto) 2.7 % Basophils (%) (Auto) 0.2 % Neutrophils # (Auto) 6.19 K/uL Lymphocytes # (Auto) 1.75 K/uL Monocytes # (Auto) 0.78 K/uL Eosinophils # (Auto) 0.24 K/uL Basophils # (Auto) 0.02 K/uL RDW Standard Deviation 46.0 fL RDW Coefficient of Variation 14.6 % Immature Granulocyte % (Auto) 0.6 % Immature Granulocyte # (Auto) 0.05 K/uL Assessment and Plan Problem List Medical Problems: (1) Incomplete miscarriage Status: Acute Post-Op Day#: 1 Continue Routine Care: routine care. stable. breast feeding, needs kontt out, needs to ambulate, po pain control. advancing diet. remove dressing in shower.
[2017-08-11] MEDS: OXYCODONE/ACETAMINOPHEN 5-325 TAB PO PRN ×3 (10:54→21:31)
[2017-08-12] MEDS: OXYCODONE/ACETAMINOPHEN 5-325 TAB PO PRN ×2 (01:30→07:26)
[2017-08-12 06:27] LABS: HEMATOCRIT 32.4 % (37-47)
[2017-08-12] MEDS: DOCUSATE SODIUM 100 MG CAP PO SCH ×2 (07:26→20:04)
[2017-08-12] MEDS: SIMETHICONE 80 MG CHEW PO SCH ×4 (07:27→20:03)
[2017-08-12 07:30] VITALS: BP 134/80; PULSE 68; TEMP 36.3; O2SAT 96
--- NOTE | 2017-08-12 07:52 | Progress Note ---
Subjective Aug 12, 2017. Subjective conversation w/ patient, physical exam Ambulation: ambulating normally Voiding: no voiding problems Passing Gas: Yes Diet Tolerance: Regular Diet Lochia: Small Feeding Type: Breast Feeding Pain: gas pain vs. crohn's flare, incisional pain as well Comment: pt states did eat foods that sometimes she avoids with crohn's and not sure if that or postop abdominal pain. Objective Vital Signs Date Time Temp Pulse Resp B/P (MAP) Pulse Ox O2 Delivery O2 Flow Rate FiO2 08/11/17 23:50 Room Air 08/11/17 23:50 36.3 69 18 130/79 (96) Room Air 08/11/17 15:30 36.6 68 20 122/78 (93) 08/11/17 09:00 36.5 76 20 104/65 (78) 97 08/11/17 09:00 97 Room Air Physical Exam General Appearance: WELL-APPEARING, WD/WN, NO APPARENT DISTRESS Respiratory/Chest: lungs clear Cardiovascular: regular rate, rhythm Abdomen: normal bowel sounds, non tender (mild tenderness), soft, + distended Fundus: Firm, Relation to Umbilicus (2 down moderately tender) Extremities: non-tender Laboratory Results Last 24 Hours Test 08/12/17 06:02 Hemoglobin 10.7 g/dL Hematocrit 32.4 % Assessment and Plan Problem List Medical Problems: (1) Incomplete miscarriage Status: Acute Post-Op Day#: 2 Continue Routine Care: stable, routine care. enc use of pain meds and ambulation. can go to a low residue diet that she is self aware of, that she uses when concerned about flare of her crohn's.
[2017-08-12] MEDS ORDERED: MAGNESIUM HYDROXIDE SUSP 30 ML UDC PO PRN (10:15)
[2017-08-12] MEDS ORDERED: SENNA 8.6 MG TAB PO PRN (10:15)
[2017-08-12] MEDS: ONDANSETRON 8 MG TAB PO PRN ×2 (11:40→21:14)
[2017-08-12] MEDS ORDERED: BISACODYL 10 MG SUPP PR PRN (14:00)
[2017-08-12 15:30] VITALS: BP 157/83; PULSE 62; TEMP 36.7; O2SAT 98
[2017-08-12] MEDS ORDERED: NURSING VERBAL MED ORDER ONE (15:45)
[2017-08-12 16:15] VITALS: BP 144/81
[2017-08-12] MEDS: ACETAMINOPHEN 325 MG TAB PO PRN (16:48)
[2017-08-12] MEDS ORDERED: DOCUSATE SODIUM 100 MG CAP PO SCH (20:00)
[2017-08-12] MEDS: DICYCLOMINE HCL 10 MG CAP PO PRN (21:14)
[2017-08-12 23:20] VITALS: BP 138/70; PULSE 59; TEMP 36.8; O2SAT 95
--- NOTE | 2017-08-13 07:04 | OPERATIVE REPORT ---
DATE OF OPERATION: 08/10/2017 PREOPERATIVE DIAGNOSES: Prolonged rupture of membranes and failure to progress in labor. POSTOPERATIVE DIAGNOSES: Same. PROCEDURE: Low segment transverse section. SURGEON: Dr. Porras. TIERCE FILLER: Liyah Shell R.N. ESTIMATED BLOOD LOSS: 500 mL. FINDINGS: Normal uterus and adnexa. SPECIMENS: Cord gases and cord blood. DRAINS: Zabala catheter. ANESTHETIC: Epidural. COMPLICATIONS: None. DISPOSITION: Labor and delivery. DESCRIPTION OF PROCEDURE: Nakia had her epidural increased to allow for section. The Zabala catheter was placed by nursing and she was in supine position with a leftward tilt. Pickups with teeth were used to check the incision area and was adequate. Scalpel used to make a Pfannenstiel incision dissecting down through subcutaneous fat to the fascia in the midline. Fascia cut laterally with curved Man scissors and then released from the rectus muscles superiorly and inferiorly with curved Mayos. Peritoneal cavity entered by splitting the rectus muscles in a superior location and opening enlarged to allow exposure. Bladder retractor placed. Metzenbaums used to dissect away the bladder flaps. Low transverse segment incised transversely with scalpel. Entry done bluntly with a hemostat. Uterine incision extended with the water taxi ferry operator's finger in the usual fashion. Baby delivered by flexing the head and elevating the head over the pelvis and pressure on the abdomen and gentle traction used. A loose nuchal cord passed over the head. Clear fluid. Live vigorous male infant. It should be noted the head was free floating in the pelvis and was not well descended. Cord clamped, cord gases obtained, and cord blood obtained. IV Pitocin started. It should be noted that IV Ancef was given preoperatively as well. Uterus exteriorized. It was somewhat boggy, so we did do an injection of 250 mcg of Hemabate. This improved tone. Uterus closed in the usual fashion, a running 0 Monocryl locked and a second reinforcing nonlocked 0 Monocryl. At this stage, hemostasis was excellent. After generous irrigation and suction of the cul-de-sac and bladder flap regions, uterus was placed back in the peritoneal cavity, hemostasis excellent. Fascia closed with 0 Vicryl, subcutaneous fat irrigated and closed with 3-0 Vicryl, skin closed with 4-0 subcuticular Monocryl, and steri-striped. Sponge and instrument counts correct. Urine was clear at the end of the procedure. I attest to the content of the Intraoperative Record and any orders documented therein. Any exception s are noted below.
[2017-08-13 07:25] VITALS: BP 147/81; PULSE 70; TEMP 36.3; O2SAT 95
[2017-08-13] MEDS ORDERED: BNT10 PO (07:31)
[2017-08-13] MEDS ORDERED: OXYC-57 PO (07:31)
--- NOTE | 2017-08-13 07:34 | Discharge Instructions ---
Discharge Instructions Date of Service Aug 13, 2017. Admission Reason for Admission: Check Ruptured Membranes Discharge Discharge Diagnosis / Problem: recovery from section Discharge Goals Goal(s): Routine recovery after Medications Continue Dispensed Medications: lansinoh Activity Recommendations Activity Limitations: per Instructions/Follow-up section . Instructions / Follow-Up Instructions / Follow-Up ACTIVITY RECOMMENDATIONS: * Gradual return to full activity over the next 2-3 weeks. * No lifting - nothing heavier than baby over the next 2-3 weeks. * Do not engage in vigorous exercise, sexual activity or sports until cleared by your physician. * Do not drive or operate any motorized equipment until cleared by your physician. * You may shower/bathe daily. MEDICATIONS: For discomfort or pain, you may use Acetaminophen (Tylenol), Ibuprofen (Advil), or Naproxen (Aleve) following the package directions. For constipation you may use Colace following the package directions. BREAST CARE: If you are not breast feeding: * Wear a supportive bra 24 hours a day for one to two weeks. * Avoid stimulating your breasts and nipples as much as possible during the first few weeks after delivery. * When taking a shower, have the warm water hit your back, not breasts. * When your breasts feel full, apply ice packs. Usually three to four times a day helps ease the discomfort. * Take a mild pain medication (Tylenol / Motrin) when you are uncomfortable. If breast feeding: * Use breast milk to lubricate nipples. Lansinoh cream may be used for sore nipples. You do not need to remove cream prior to breast feeding. If using a different brand of cream, check the label for directions regarding removal of cream prior to nursing. * Wear a supportive bra. * If having problems with breasts or breast feeding, call a [facility] consultant or your health care provider. SPECIAL CARE INSTRUCTIONS: When you are discharged from the hospital, it is important for you to follow the instructions listed below: * During the first week at home, you should be able to care for yourself and your baby. In addition, the usual light household activities are encouraged. * Limit your activities to the way you feel. Do not try to clean the house or move furniture. Be sensible. * If you actively engage in sports and have done so up until the time of your delivery, you may resume these activities as soon as you feel able. This may take up to one month or even longer. Use good judgment. * Continue to take your vitamins for at least six weeks after the of your baby. * Your diet need not be limited unless you were on a special diet before your delivery. Breast-feeding mothers need around 2500 calories per day and at least 64-80 ounces of fluid per day (8 to 10 glasses). * You should eat foods from the four major food groups. Crash diets or fad diets are to be avoided. Eating lean meats, fresh fruits and vegetables, low-fat dairy products, high fiber foods and a regular exercise program, will help you get back to your pre- weight without putting your health at risk. * Constipation is sometimes a problem after delivery. Take a mild laxative as needed. If breast feeding, Milk of Magnesia is acceptable to use. You may use a suppository or Fleets enema. * A daily shower or tub bath is suggested. Wash incision daily with warm soapy water and pat dry. It doesn't need to be covered unless drainage is present. * A bloody vaginal discharge will usually continue until around four weeks . A small amount of bleeding may continue for as long as six weeks. Vaginal discharge changes from the bright red bleeding after delivery to pink then brownish and finally yellowish-pink before becoming white and disappearing. * Bleeding may increase with activity. Your first period may come in 4-8 weeks. If you are breast feeding, your period may be delayed even longer. * [place] (sex) can begin whenever both you and your partner feel comfortable and do not have any form of genital infection. It is recommended that you wait at least six weeks for internal and external healing to occur. If you have questions, please talk to your health care practitioner. A condom should be used to prevent infection and . * Foreplay, gentle intercourse and lubrication is very important the first several times to prevent pain. A water-based lubricant such as K-Y jelly or Astroglide may be used. * If you have RH negative blood and your baby is RH positive, you will receive RHOGAM by injection prior to discharge. The nurse will give you a card to keep with you that has the date and place that you received RHOGAM after delivery. * During your care, you had a Rubella screen done to check for the presence of rubella antibodies in your blood. If your test was negative, you will receive a Rubella vaccine prior to discharge. This vaccine may cause a fever, soreness at the injection site and flu-like symptoms. If these symptoms persist, notify your health care practitioner. is not advised for one month after a Rubella vaccine. * Verbalizes understanding of car seat law as reviewed with patient nursing. * Car Seat hand-out given and reviewed with patient by nursing. * Shaken baby information reviewed with patient by nursing. Call you doctor if: * Heavy bleeding (saturating several pads an hour) or passing clots the size of your fist. * A fever >101 degrees F (38.3 degrees C) on two occasions four hours apart and /or chills. * Unusual pain in the pelvic or vaginal areas. * Call the doctor for any increased redness, drainage or swelling around the incision and any pain unrelieved by prescribed pain medication. * "Baby Blues" lasting longer than two weeks. If you have any questions or concerns, call your health care practitioner at . FOLLOW UP VISIT: * Please call the office at to schedule a 6 week examination. It is important you keep this appointment. It is important for you to make arrangements for either yearly or twice yearly check-ups thereafter. Current Hospital Diet Patient's current hospital diet: Clear Liquid Diet, Low Fiber Diet Discharge Diet Recommended Diet: Low Fiber Diet Procedures Procedures Performed: Low transverse section Pending Studies Studies pending at discharge: no Medical Emergencies . Who to Call and When: Medical Emergencies: If at any time you feel your situation is an emergency, please call [phone] immediately. . Non-Emergent Contact Non-Emergency issues call your: Commission Broker . . "Provider Documentation" section prepared by [employer]. . VTE Core Measure Inpt VTE Proph given/why not?: Treatment not indicated
[2017-08-13] MEDS: DICYCLOMINE HCL 10 MG CAP PO PRN (07:54)
[2017-08-13] MEDS: SIMETHICONE 80 MG CHEW PO SCH ×2 (07:54→11:29)
[2017-08-13] MEDS: DOCUSATE SODIUM 100 MG CAP PO SCH (07:54)
[2017-08-13] MEDS: ACETAMINOPHEN 325 MG TAB PO PRN (07:56)
--- NOTE | 2017-08-13 07:58 | Progress Note ---
Subjective Aug 13, 2017. Subjective conversation w/ patient, physical exam Ambulation: ambulating normally Voiding: no voiding problems Passing Gas: Yes Diet Tolerance: Clear Liquids Lochia: Small Feeding Type: Breast Feeding Comment: vomited 800 cc yesterday after having gas pains & nausea. felt much better after this. taking tylenol now for pain. Bentyl is helping with cramping. has passed flatus now & has had a BM . feels this was a flair of Chrohn's disease. usually does one day of clear liquids when has a flair. Review of Systems Constitutional: No fever, No chills, No sweats, No weight loss, No weakness, No fatigue, No problem reported Breast: No see HPI, No breast lump, No change in shape, No nipple discharge, No breast pain, No problem reported Abdomen: No pain, No nausea, No vomiting, No diarrhea, No constipation, No GI bleeding, No problem reported Female : No see HPI, No dysuria, No urinary frequency, No hematuria, No incontinence, No abnormal vaginal bleeding, No vaginal discharge, No problem reported Objective Vital Signs Date Time Temp Pulse Resp B/P (MAP) Pulse Ox O2 Delivery O2 Flow Rate FiO2 08/13/17 07:25 36.3 70 20 147/81 (103) 95 Room Air 08/12/17 23:20 95 Room Air 08/12/17 23:20 36.8 59 18 138/70 (92) 95 Room Air 08/12/17 16:15 144/81 (102) 08/12/17 15:30 Room Air 08/12/17 15:30 36.7 62 16 157/83 (107) 98 Room Air Physical Exam General Appearance: WELL-APPEARING, NO APPARENT DISTRESS Abdomen: soft Fundus: Firm, Non-Tender, Relation to Umbilicus (2 below U) Incision Description: Clean, Dry & Intact Extremities: no calf tenderness Assessment and Plan Problem List Medical Problems: (1) Incomplete miscarriage Status: Acute Post-Op Day#: 3 Continue Routine Care: s/p section with history of Chrohn's disease nausea & abdominal distension resolved will advance diet to full liquids then low fiber diet at lunch if tolerates full liquids. will discharge to home if tolerates low fiber diet scripts for percocet 1/2 tab every 4 hours as needed for pain & Bentyl as needed
[2017-08-13] MEDS ORDERED: ZFR8 PO (10:52)
[2017-08-13 15:12] VITALS: BP_DIAS 81; PULSE 70; TEMP 36.3
[2017-08-13] MEDS ORDERED: BISACODYL 5 MG TABEC PO ONE (22:00)
[2017-08-14] MEDS ORDERED: BISACODYL 10 MG SUPP PR PRN (11:15)
--- NOTE | 2017-08-16 08:39 | DISCHARGE SUMMARY ---
Nakia had a section on the date of 08/10/2017, this was after a long labor. Operative note is in the system and procedure was uncomplicated. By 08/13/2017 she met discharge criteria. She was seen by Dr. Valentin at that time. At that time she was ambulating well. She had minimal bleeding, her pain was well controlled by oral pain medication. She was tolerating an oral diet. She had no extremity pain. PHYSICAL EXAMINATION: VITAL SIGNS: Stable. She is afebrile. CHEST: Clear. CARDIOVASCULAR EXAMINATION: Normal rate and rhythm. No audible murmur. ABDOMINAL EXAMINATION: Benign. Incision clean, dry and intact. EXTREMITY EXAMINATION: Negative. Hemoglobin 10.7. The patient meets discharge criteria. Discharged on Percocet and Motrin and told to follow up in the office. Discharge instructions reviewed.
== END 2017-08-13 15:14 | disposition home or self-care (01) | DRG 766 ==
LOC: C.LD 05:56 → C.OPB 05:56 → C.LD 06:47 → C.OBG 08-10 12:30 → EDSTATUS 08-11 05:55
PROVIDERS: ADMIT Obstetrics & Gynecology; ATTEND Obstetrics & Gynecology
PROC: 10D00Z1 Extraction of Products of Conception, Low, Open Approach (ICD-10-PCS; principal; 2017-08-10 07:17)
DX: O63.9 Long labor, unspecified (principal); Z22.330 Carrier of Group B streptococcus; O69.81X1 Labor and delivery complicated by cord around neck, without compression, fetus 1; Z37.0 Single live birth; Z3A.40 40 weeks gestation of pregnancy

== ENCOUNTER → 2017-09-19 | Outpatient (CLI) | payer OTHER ==
[~2017-09-19] MED LIST changes: +BNT10 PO; +CHOL1000 PO; +CYAN100T PO; +DIGE1CAP10; +DOXY25TA7; +FLAX10007; +GADAVIST IV PRN; +GARL1CAP6; +MAGN400T6 PO; -MAGNEVIST IV PRN; +MISCCAP80; +OMEG10007 PO; +OXYC-57 PO; +PRENTAB26 PO; +PYRI100T4 PO; +ZFR8 PO; +ZINC1CAP PO
--- NOTE | 2017-09-19 09:39 | DIAGNOSTIC IMAGING REPORT ---
CT SCAN OF THE CHEST WITH IV CONTRAST CLINICAL HISTORY: Follow-up sarcoma. COMPARISON STUDY: Chest CT scans dated 09/27/2016 and 10/07/2015. TECHNIQUE: Following the IV administration of 94 cc of Optiray 320, CT scan of the thorax was performed from the thoracic inlet to the upper abdomen. Images are reviewed in the axial, sagittal, and coronal planes. IV contrast was administered without complication. A dose lowering technique was utilized adhering to the principles of ALARA. CT DOSE: 259.80 mGy.cm FINDINGS: Thyroid: Imaged portions of the thyroid gland are normal in size and attenuation. Thoracic aorta: The thoracic aorta is normal in caliber and demonstrates standard 3-vessel arch anatomy. No dissection is seen. Pulmonary vasculature: The pulmonary trunk is normal in caliber. There are no filling defects identified in the central pulmonary vessels to indicate pulmonary embolus. Note that this examination was not protocoled for evaluation of the pulmonary arteries. Heart: The heart is normal in size and configuration, and without pericardial effusion. Lungs and pleural spaces: Again seen are changes of diffuse/multifocal pulmonary metastatic disease. This has not appreciably changed from the 09/27/2016 examination. The majority of the nodules are subcentimeter. The largest is present in the medial left lower lobe on image #185 and measures 10 mm. There is no airspace consolidation or pleural effusion. The trachea and central airways are clear. Mediastinum: There is no mediastinal lymphadenopathy. Tyra: Clear. Axillae: There is no axillary lymphadenopathy. Upper abdomen: At least 5 low-attenuation liver lesions are again seen and typical in appearance for metastatic disease. Skeletal structures: No lytic or blastic bony lesions are seen. IMPRESSION: 1. Findings of multifocal pulmonary metastatic disease have not significantly changed from the 09/27/2016 examination. 2. Multifocal hepatic metastatic disease is partially imaged. 3. There is no airspace consolidation or pleural effusion. Electronically signed by: Filiberto Peres M.D. 09/19/2017 9:37 AM Dictated Date/Time: 09/19/2017 9:29 AM
--- NOTE | 2017-09-19 10:58 | DIAGNOSTIC IMAGING REPORT ---
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 TECHNIQUE: Multisequence, multiplanar MR imaging of the abdomen was performed before and after the administration of intravenous contrast. IV contrast: 6.5 mm of Gadavist. COMPARISON: 09/27/2016. FINDINGS: Localizer images: Unremarkable. Lung bases: Lungs and pleural spaces clear. Normal heart size. No pericardial or pleural effusion. Liver: Normal morphology. The known liver lesions are not significant changed in size or their enhancement characteristics with early peripheral arterial enhancement that is fairly progressive and incomplete. No new lesion. Lesions are numerous below. Patent hepatic vasculature. 1. Segment 4A lesion measuring 2.7 cm (series 6 image 47), previously 2.5 cm 2. Segment 4A lesion measuring 1.9 cm (series 6 image 37), previously 1.6 cm 3. Segment 6 lesion measuring 1.7 cm (series 6 image 101), previously 1.9 cm 4. Segment 7/8 measuring 5 mm (series 6 image 33), previously 6 mm Biliary: No intrahepatic or extrahepatic biliary ductal dilatation. Normal gallbladder. Pancreas: Normal. Spleen: Normal. Adrenal glands: Normal. Kidneys and ureters: T2 hyperintense, T1 hyperintense nonenhancing lesion in the right kidney likely hemorrhagic or proteinaceous cyst. No hydronephrosis. Bowel: Normal. No bowel obstruction. Peritoneal cavity: No free fluid or intraperitoneal gas. Lymph nodes: No enlarged lymph nodes in the abdomen. Vasculature: Aorta and IVC patent and normal in caliber. Abdominal wall: Normal. Musculoskeletal: Normal. IMPRESSION: 1. Grossly stable size and number of multiple hepatic metastatic lesions. No new lesion. In the future, follow-up examinations can be performed with Eovist, which would increased sensitivity for metastatic lesions in the liver. Additionally, diffusion weighted imaging would be helpful. Electronically signed by: Jarrod Osman M.D. 09/19/2017 10:57 AM Dictated Date/Time: 09/19/2017 10:43 AM
--- NOTE | 2017-09-19 11:06 | DIAGNOSTIC IMAGING REPORT ---
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 TECHNIQUE: Multisequence, multiplanar MR imaging of the pelvis was performed before and after the administration of intravenous contrast. IV contrast: 6.5 mL of Gadavist. COMPARISON: 05/17/2016 and 09/27/2016. FINDINGS: Localizer images: Unremarkable. Pelvic organs: Retroverted uterus. Normal uterus and ovaries. Susceptibility artifact in the region of the anterior lower uterine segment may suggest prior section. Bladder: Bladder normal. Bowel: Wall thickening of the terminal ileum, chronic. No extensive perienteric inflammatory change. Feces immediately upstream to the thick-walled segment likely reflects delayed transit. No bowel obstruction. Peritoneum: Trace pelvic ascites. Lymph nodes: No pelvic lymphadenopathy. Vasculature: Patent vasculature. Abdominal wall: Mild subcutaneous inflammatory change suggested along the lower abdominal wall, nonspecific. This may reflect a Pfannenstiel scar. Musculoskeletal: Normal bone marrow signal intensity. ABDOMEN: Partially visualized hepatic masses. Please see separately dictated MR of the abdomen. IMPRESSION: 1. Chronic wall thickening of the terminal ileum compatible with known history of Crohn's disease. No commencing evidence of acute/active inflammation. This may reflect a component of fibrostenosing disease with mild delayed transit. 2. No evidence of pelvic lymphadenopathy or mass lesion. Electronically signed by: Jarrod Osman M.D. 09/19/2017 11:04 AM Dictated Date/Time: 09/19/2017 10:57 AM
== END | disposition home or self-care (01) ==
LOC: C.CTS 09:06
PROVIDERS: ATTEND Family Medicine
DX: C49.9 Malignant neoplasm of connective and soft tissue, unspecified (principal); K76.9 Liver disease, unspecified

== ENCOUNTER 2017-11-06 01:00 | Emergency (ER) | payer OTHER ==
[~2017-11-06] VITALS: Ht 165.1 cm; Wt 62.9 kg
[~2017-11-06 01:00] MED LIST changes: -DOXY25TA7; +DOXY25TA8; -GADAVIST IV PRN; -OPTIRAY 320 IV PRN
[2017-11-06 01:03] VITALS: TEMP 36.5; Ht 165.1 cm; Wt 62.9 kg
[2017-11-06] MEDS ORDERED: CLINDAMYCIN IV 900 MG in DEXTROSE 5% ADD-VANTAGE 100ML 100 ML IV ONE (01:30)
[2017-11-06] MEDS ORDERED: HYDROmorphone INJ 0.5 MG/0.5 ML SYR ONE (02:08)
[2017-11-06 02:17] LABS: BASO % 0.4 %; BASO ABS # 0.04 K/uL (0-0.2); EOS % 2.9 %; EOS ABS # 0.29 K/uL (0-0.5); HEMATOCRIT 36.9 % (37-47); HEMOGLOBIN 12.2 g/dL (12.0-16.0); IG# 0.03 K/uL (0.00-0.02); LYMPH % 17.2 %; LYMPH ABS # 1.75 K/uL (1.2-3.4); MEAN CELL VOLUME 86.2 fL (80-100); MEAN CORPUSCULAR HEMOGLOBIN 28.5 pg (25-34); MEAN CORPUSCULAR HGB CONC 33.1 g/dl (32-36); MONO % 10.3 %; MONO ABS # 1.05 K/uL (0.11-0.59); NEUT % 68.9 %; NEUT ABS # 7.01 K/uL (1.4-6.5); PLATELET COUNT 292 K/uL (130-400); RED CELL DISTRIBUTION WIDTH CV 13.8 % (11.5-14.5); RED CELL DISTRIBUTION WIDTH SD 42.9 fL (36.4-46.3); WHITE BLOOD COUNT 10.17 K/uL (4.8-10.8)
[2017-11-06] MEDS ORDERED: HYDROmorphone INJ 0.5 MG/0.5 ML SYR IV STA (02:20)
[2017-11-06 02:37] LABS: CALCIUM 9.2 mg/dl (8.5-10.1); CREATININE 0.65 mg/dl (0.60-1.20); POTASSIUM 3.3 mmol/L (3.5-5.1)
[2017-11-06] MEDS ORDERED: CLIN300C2 PO (02:58)
[2017-11-06] MEDS ORDERED: HYDR-5688 PO (02:58)
[2017-11-06] MEDS ORDERED: NORCO 5/325MG HOME PACK PO ONE (03:00)
[2017-11-06] MEDS ORDERED: CLINDAMYCIN 150MG HOME PACK PO ONE (03:00)
--- NOTE | 2017-11-06 03:02 | EMERGENCY ROOM VISIT NOTE ---
History First contact with patient: 01:06 Chief Complaint: DENTAL PAIN Stated Complaint: SWELLING RELATED TO POSSIBLE ROOT CANAL Nursing Triage Summary: Upper front dental pain x 2 days with swelling on the right side that extends up toward eye. Pt took 2 doses of Augmentin. History of Present Illness The patient is a 32 year old female who presents to the Emergency Room with complaints of right upper dental pain. The patient reports that yesterday afternoon, she developed a throbbing pain in her right upper front tooth. She states she has had some problems with her teeth and has had to have root canals in the past. She rates her discomfort an 8/10. She states that this morning, she developed some swelling in the upper lip. She started Augmentin this morning and has taken 2 doses of this. She denies neck pain/swelling, difficulty swallowing, difficulty breathing, fever or drainage from the mouth. Her pain is worsened by talking or eating. She has taken ibuprofen and Tylenol without improvement of her pain. Review of Systems A complete 10 point review of systems was reviewed with the patient with pertinent positives and negatives as per history of present illness. All else were negative. 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 (2) Crohns disease (3) Encounter for supervision of normal intrauterine in primigravida, antepartum (4) Incomplete miscarriage (5) Liver mass (6) Lung nodule (7) Partial small bowel obstruction Surgical Problems: (1) Appendicitis Social History Smoking Status: Never Smoker Alcohol Use: occasionally Marital Status: Housing Status: lives with significant other Occupation Status: employed Current/Historical Medications Scheduled Cholecalciferol (Vitamin D3), 1 TAB PO DAILY Clindamycin Hcl (Cleocin), 300 MG PO QID Cyanocobalamin (Vitamin B-12), 100 MCG PO DAILY Fish Oil (Arco-3), 1 CAP PO DAILY Magnesium Oxide (Mag-Ox), 400 MG PO DAILY Multivit/Min/Iron/Fol Ac/Pren ( Vitamin), 1 TAB PO DAILY Pyridoxine (Vitamin B6), 100 MG PO DAILY Zinc Sulfate (Zinc Sulfate), 220 MG PO TID Scheduled PRN Dicyclomine HCl (Dicyclomine HCl), 10 MG PO Q6 PRN for Pain Hydrocodone/Acetaminophen 5MG/325MG (Rich[place] 5MG/325MG), 1-2 TABLET PO Q4H PRN for Pain Ondansetron (Ondansetron HCl), 8 MG PO Q6H PRN for Nausea Oxycodone/Acetaminophen 5MG/325MG (Percocet 5MG/325MG), 1 TAB PO Q4H PRN for Pain - Pain Scale 1-5 Miscellaneous Medications Digestive Enzymes (Digestive Enzyme) Doxylamine Succinate (Sleep) (Unisom) Flaxseed (Linseed) (Flax Seed Oil) Garlic (Garlic) Probiotic Product (Probiotic) Physical Exam Vital Signs Date Time Temp Pulse Resp B/P (MAP) Pulse Ox O2 Delivery O2 Flow Rate FiO2 11/06/17 03:10 80 20 114/61 98 Room Air 11/06/17 02:14 76 16 119/69 98 11/06/17 01:03 36.5 81 18 124/80 97 Room Air Physical Exam VITALS: Vitals are noted on the nurse's note and reviewed by myself. Vital signs stable. GENERAL: This is a 32-year-old female, in no acute distress, nondiaphoretic, well-developed well-nourished. EARS: External auditory canals clear, tympanic membranes pearly christian without erythema or effusion bilaterally. EYES: Pupils equal round and reactive to light and accommodation. MOUTH: Mucous membranes moist. No swelling or drainage from the gums. No trismus. FACE: There is mild edema of the right upper lip and cheek. No erythema, induration or fluctuance. NECK: Supple without nuchal rigidity. No lymphadenopathy. HEART: Regular rate and rhythm without murmurs gallops or rubs. LUNGS: Clear to auscultation bilaterally without wheezes, rales or rhonchi. NEURO: Patient was alert and oriented to person place and time. Medical Decision & Procedures Laboratory Results 11/06/17 02:03 Red Blood Count 4.28, Mean Corpuscular Volume 86.2, Mean Corpuscular Hemoglobin 28.5, Mean Corpuscular Hemoglobin Concent 33.1, Mean Platelet Volume 9.0, Neutrophils (%) (Auto) 68.9, Lymphocytes (%) (Auto) 17.2, Monocytes (%) (Auto) 10.3, Eosinophils (%) (Auto) 2.9, Basophils (%) (Auto) 0.4, Neutrophils # (Auto ) 7.01, Lymphocytes # (Auto) 1.75, Monocytes # (Auto) 1.05, Eosinophils # (Auto ) 0.29, Basophils # (Auto) 0.04 11/06/17 02:03 Test 11/06/17 02:03 White Blood Count 10.17 K/uL (4.8-10.8) Red Blood Count 4.28 M/uL (4.2-5.4) Hemoglobin 12.2 g/dL (12.0-16.0) Hematocrit 36.9 % (37-47) Mean Corpuscular Volume 86.2 fL (80-100) Mean Corpuscular Hemoglobin 28.5 pg (25-34) Mean Corpuscular Hemoglobin Concent 33.1 g/dl (32-36) Platelet Count 292 K/uL (130-400) Mean Platelet Volume 9.0 fL (7.4-10.4) Neutrophils (%) (Auto) 68.9 % Lymphocytes (%) (Auto) 17.2 % Monocytes (%) (Auto) 10.3 % Eosinophils (%) (Auto) 2.9 % Basophils (%) (Auto) 0.4 % Neutrophils # (Auto) 7.01 K/uL (1.4-6.5) Lymphocytes # (Auto) 1.75 K/uL (1.2-3.4) Monocytes # (Auto) 1.05 K/uL (0.11-0.59) Eosinophils # (Auto) 0.29 K/uL (0-0.5) Basophils # (Auto) 0.04 K/uL (0-0.2) RDW Standard Deviation 42.9 fL (36.4-46.3) RDW Coefficient of Variation 13.8 % (11.5-14.5) Immature Granulocyte % (Auto) 0.3 % Immature Granulocyte # (Auto) 0.03 K/uL (0.00-0.02) Anion Gap 8.0 mmol/L (3-11) Est Creatinine Clear Calc Drug Dose 113.9 ml/min Estimated GFR () 138.1 Estimated GFR (Non- 119.1 BUN/Creatinine Ratio 21.1 (10-20) Calcium Level 9.2 mg/dl (8.5-10.1) Medications Administered Medications (Trade) Dose Ordered Sig/Wilbert Route Start Time Stop Time Status Last Admin Dose Admin Clindamycin Phosphate 900 mg/ Dextrose 106 ml @ 100 mls/hr ONE ONCE IV 11/06/17 01:30 11/06/17 02:33 DC 11/06/17 02:00 100 MLS/HR Hydromorphone HCl (Dilaudid Inj) 0.5 mg STK-MED ONCE .ROUTE 11/06/17 02:08 11/06/17 02:09 DC 11/06/17 02:14 0.5 MG Acetaminophen/ Hydrocodone Bitart (Richland 5/325mg Home Pack) 1 homepack UD ONCE PO 11/06/17 03:00 11/06/17 03:01 DC 11/06/17 03:10 1 HOMEPACK Clindamycin HCl (Cleocin 150MG Home Pack) 1 homepack UD ONCE PO 11/06/17 03:00 11/06/17 03:01 DC 11/06/17 03:10 1 HOMEPACK Medical Decision Differential diagnosis includes dental infection, periapical abscess, Hans's angina, among others. The patient is a 32-year-old female who presents today complaining of dental pain and facial swelling. Exam reveals some mild swelling of the face surrounding tooth #8. No evidence of a significant facial cellulitis or abscess. Labs revealed no leukocytosis. Patient was given a dose of IV Clindamycin and medicated for pain. She will be switched to Clindamycin and was advised to follow up with dentistry. She was given an rx for Richland. Based on the patient's presentation and work up, I feel the patient is stable for outpatient treatment. The patient was educated to return to the emergency department for any worsening of their current condition or new/concerning symptoms. She will follow up with a dentist. Medication Reconcilliation Current Medication List: was personally reviewed by [facility] Blood Pressure Screening Patient's blood pressure: Normal blood pressure Impression Primary Impression: Dental infection Departure Information Dispostion Home / Self-Care Condition GOOD Prescriptions Hydrocodone/Acetaminophen 5MG/325MG (Richland 5MG/325MG) Tab 1-2 TABLET PO Q4H Y for Pain, #20 TAB For Initial Treatment Prov: Yi Hollins PA-C 11/06/17 Clindamycin Hcl (CLEOCIN) 300 Mg Cap 300 MG PO QID for 10 Days, #40 CAP Prov: Yi Hollins PA-C 11/06/17 Referrals Sanjuana Ding M.D. (PCP) Patient Instructions My [facility] Additional Instructions You have been treated in the Emergency Department for Dental Pain. You have received pain medicine in the emergency department which impairs your ability to operate a vehicle. It is illegal for you to drive after receiving these medicines. You have been prescribed Richland to be used for pain control. This is a narcotic medication. You cannot drive or consume alcohol while on this medicine. This medicine should only be used for pain that cannot be controlled with over-the- counter pain medicines. You were prescribed Clindamycin to be taken 300 mg four times daily for a total of 10 days. This is an antibiotic. All antibiotics have the potential to cause diarrhea. Stop this medication and contact a medical provider if you were to develop any significant adverse side effects including: wheezing, shortness of breath, passing out, vomiting, or a diffuse rash. Always take antibiotics as directed and COMPLETE the ENTIRE course regardless of the improvement of your symptoms. Contact your [employer] [employer] regarding while taking the Clindamycin. For pain control, you can use the following [id number] medicines (if >12 yo): - Regular strength (325mg/tab) Tylenol (acetaminophen) 2 tabs every 4-6 hours as needed. Do not exceed 12 tablets in a 24 hour period. Avoid taking more than 4 grams (4000 mg) of Tylenol per day. This includes any other sources of acetaminophen you may take on a regular basis. Follow-up with the dentist. Local meter maintenance person: [facility] [phone] Return to the emergency department if you develop the following symptoms despite treatment course outlined above: fever, intractable pain, increased redness, swelling, or purulent discharge.
[2017-11-06 03:10] VITALS: BP 114/61; PULSE 80; O2SAT 98
== END 2017-11-06 03:18 | disposition home or self-care (01) ==
LOC: C.EDB 01:01
DX: K04.7 Periapical abscess without sinus (principal)

== ENCOUNTER 2020-06-13 05:34 | Inpatient (IN) ==
--- NOTE | 2020-06-12 13:29 | History & Physical Report ---
Date of Service June 12, 2020 Assessment & Plan (1) Previous delivery affecting , antepartum: Repeat section. The patient was counseled to the nature of the procedure including alternatives such as labor. Risks were discussed including bleeding infection injury to bowel bladder ureter vessels and even baby. The risks of internal organ injury were discussed as being higher with prior sections. Deep Vein Thrombosis, pulmonary embolus and breakdown of the incision discussed. Deep vein thrombosis pulmonary embolus hernia and failure of the incision to heal were discussed Patient verbalized understanding of this and was given ample time to ask que alex History of Present Illness Primary Care Provider: NO PCP Previous C/S requests repeat, will be 39 completed weeks. Covid neg Allergies Allergy/AdvReac Type Severity Reaction Status Date / Time nickel Allergy Mild RASH Verified 06/08/20 10:33 No Known Drug Allergies Allergy Verified 06/08/20 10:33 Home Medications Home Medications Medication Instructions Recorded Confirmed Type Probiotic 1 cap PO DAILY 10/24/18 06/08/20 History cholecalciferol (vitamin D3) 1,000 unit PO DAILY 10/24/18 06/08/20 History [Vitamin D3] ferrous sulfate [iron] 325 mg PO DAILY 10/24/18 06/08/20 History flaxseed oil 1,000 mg PO DAILY 10/24/18 06/08/20 History garlic 1,000 mg PO DAILY 10/24/18 06/08/20 History magnesium 250 mg PO BID 10/24/18 06/08/20 History omega 8-twq-pno-fish oil [Fish Oil] 1 cap PO DAILY 10/24/18 06/08/20 History vitamin B complex 1 tab PO DAILY 10/24/18 06/08/20 History zinc 50 mg PO DAILY 10/24/18 06/08/20 History cetirizine 10 mg tablet 10 mg PO DAILY 11/12/19 06/08/20 History prenat.vits,kike,bsr-pfha-bfepp 1 tab PO DAILY 11/12/19 06/08/20 History sertraline 25 mg tablet 25 mg PO QAM 11/12/19 06/08/20 History doxylamine 10 mg-pyridoxine (vit See Rx Instructions .ROUTE 04/08/20 06/08/20 Rx B6) 10 mg tablet,delayed release .COMPLEX #30 tab Patient History Medical History Cancer LIVER CANCER (BEING MONITORED) GET SONOGRAMS ROUTINE (03/2015 DX) Crohns disease History of miscarriage Liver lesion BEING MONITORED Lung nodules BEING MONITORED Umbilical hernia Surgical History History of section X 1 History of colonoscopy History of liver biopsy History of resection of terminal ileum ileum and appendix removed February 2019 History of tooth extraction History of umbilical hernia repair Family History (Updated 11/12/19 @ 09:29 by Dolores Hu) Mother Heart disease Aunt Heart disease Grandmother Lung cancer Social History (Updated 11/12/19 @ 10:07 by Dolores Hu) Smoking Status: Former smoker Second Hand Exposure: No; Hx Alcohol Use: Yes Alcohol type: wine Hx Substance Use: No Preferred Language: Citizen Of [place] Communication Ability: Effective Key Attendant Required: No Beliefs That Will Affect Care: None marital status: marital status details: Riki Oswald [phone] Current Living Situation: Family Current Living Situation Comment: lives with and child, 2 dogs current occupational status: employed current occupation: hairdresser Feels Safe at Home: Yes Assistive Devices: Contacts Physical Exam Constitutional: WD/WN, vitals as above Respiratory: normal respiratory effort, lungs clear to auscultation Cardiovascular: RRR, no murmur, no edema Gastrointestinal (Abdomen): normal bowel sounds, soft, nontender, no hepatosplenomegaly Coding Level of Care Code None Diagnoses Previous delivery affecting , antepartum O34.219
[2020-06-13] MEDS ORDERED: LACTATED RINGER'S 1,000 ML IV SCH ×2 (06:00→10:34)
[2020-06-13] MEDS ORDERED: ceFAZolin 2000MG 2,000 MG/15 ML SYR IV SCH (06:00)
[2020-06-13] MEDS ORDERED: CITRIC ACID/SODIUM CITRATE 15 ML UDC PO SCH (06:00)
[2020-06-13 06:15] LABS: Basophils # (auto) 0.02 K/uL (0-0.2); Basophils % (auto) 0.2 %; Eosinophils # (auto) 0.12 K/uL (0-0.5); Eosinophils % (auto) 1.3 %; Hematocrit (blood only) 35.1 % (37-47); Hemoglobin 11.9 g/dL (12.0-16.0); Immature Granulocytes # (auto) 0.08 K/uL (0.00-0.02); Immature Granulocytes % (auto) 0.9 %; Lymphocytes # (auto) 1.75 K/uL (1.2-3.4); Lymphocytes % (auto) 19.3 %; Mean Corpuscular Hemoglobin 30.1 pg (25-34); Mean Corpuscular Hgb Conc 33.9 g/dL (32-36); Mean Corpuscular Volume 88.6 fL (80-100); Mean Platelet Volume 9.9 fL (7.4-10.4); Monocytes # (auto) 0.74 K/uL (0.11-0.59); Monocytes % (auto) 8.2 %; Neutrophils # (auto) 6.35 K/uL (1.4-6.5); Neutrophils % (auto) 70.1 %; Platelet Count 216 K/uL (130-400); RDW Coefficient of Variation 14.2 % (11.5-14.5); RDW Standard Deviation 45.8 fL (36.4-46.3); Red Blood Count 3.96 M/uL (4.2-5.4); White Blood Count 9.06 K/uL (4.8-10.8)
--- NOTE | 2020-06-13 07:12 | Anesthesiology Consultation ---
Date of Service June 13, 2020 Assessment & Plan Chart Review Chart Review: Acceptable Risk for Surgery and Patient NOT seen in Pre Admission Testing Consults Requested none ASA ASA3 Proposed Anesthesia Anesthesia Type: Spinal Risk / Benefits Reviewed With: PT / POA / Parent / Guardian, Accepts Plan and Informed Consent Obtained Additional Comments: covid test negative History Surgery Operation Date: 06/13/20 07:30 Proposed Procedures p Section in LD - J. Wil Porras MD, FACOG Height/Weight Height: 5 ft 4 in Weight: 91.626 kg Allergies Allergy/AdvReac Type Severity Reaction Status Date / Time nickel Allergy Mild RASH Verified 06/08/20 10:33 No Known Drug Allergies Allergy Unknown Verified 06/13/20 05:57 Medications Home Medications Medication Instructions Recorded Confirmed Last Taken Probiotic 1 cap PO DAILY 10/24/18 06/13/20 06/12/20 08:00 cholecalciferol (vitamin D3) 1,000 unit PO DAILY 10/24/18 06/13/20 06/12/20 08:00 [Vitamin D3] ferrous sulfate [iron] 325 mg PO DAILY 10/24/18 06/13/20 06/12/20 08:00 flaxseed oil 1,000 mg PO DAILY 10/24/18 06/13/20 06/12/20 08:00 garlic 1,000 mg PO DAILY 10/24/18 06/13/20 06/12/20 08:00 magnesium 250 mg PO BID 10/24/18 06/13/20 06/12/20 08:00 omega 3-mwk-rts-fish oil [Fish Oil] 1 cap PO DAILY 10/24/18 06/13/20 06/12/20 08:00 vitamin B complex 1 tab PO DAILY 10/24/18 06/13/20 06/12/20 08:00 zinc 50 mg PO DAILY 10/24/18 06/13/20 06/12/20 08:00 cetirizine 10 mg tablet 10 mg PO DAILY 11/12/19 06/13/20 06/12/20 prenat.vits,kike,nuq-xcgd-iriqv 1 tab PO DAILY 11/12/19 06/13/20 06/12/20 08:00 sertraline 25 mg tablet 25 mg PO QAM 11/12/19 06/13/20 06/12/20 09:00 doxylamine 10 mg-pyridoxine (vit See Rx Instructions .ROUTE 04/08/20 06/13/20 06/12/20 08:00 B6) 10 mg tablet,delayed release .COMPLEX #30 tab NPO Date Last Intake of Fluids: 06/12/20 Time Last Intake of Fluids: 23:00 Date Last Intake of Solids: 06/12/20 Time Last Intake of Solids: 21:00 Past Medical History Medical History Cancer LIVER CANCER (BEING MONITORED) GET SONOGRAMS ROUTINE (03/2015 DX) Crohns disease History of miscarriage Liver lesion BEING MONITORED Lung nodules BEING MONITORED Umbilical hernia Exercise / Class Metabolic Activity II 4-5 Yardwork/Stairs/Walk up hill Past Family History Family History Mother Heart disease Aunt Heart disease Grandmother Lung cancer Past Surgical History Surgical History History of section X 1 07/2017 History of colonoscopy History of liver biopsy History of resection of terminal ileum ileum and appendix removed February 2019 History of tooth extraction History of umbilical hernia repair Past Anesthesia History No Hx of Anesthesia Complications and No Family Hx of Anesthesia Complications History of PONV No Hx of Motion Sickness and History of PONV Social History Smoking Status: Former smoker tobacco type: cigarettes Do You Dip or Chew Tobacco: No Smoking End Date: 2013 Hx Alcohol Use: Yes Alcohol type: wine alcohol intake frequency: other Alcohol Intake Frequency Comment: VERBALIZED "WILL HAVE A SMALL SIP OF WINE OCCASIONALLY" Hx Substance Use: No substance use type: does not use Physical Exam Vital Signs Last Vital Signs Temp 36.5 C 06/13/20 06:01 Pulse 77 06/13/20 05:48 Resp 18 06/13/20 06:01 BP 127/75 06/13/20 05:48 Constitutional + obese ENMT Mouth: no dentition abnormality Thyromental Distance: < 3.5 Finger Breadths Mallampati Class: II Neck normal visual inspection and trachea midline; neck extension not limited Respiratory normal respiratory effort Auscultation: lungs clear to auscultation bilaterally Cardiovascular Rate/Rhythm: regular rate and regular rhythm Heart Sounds: no murmur Vessels: no carotid bruit Musculoskeletal Spine: lumbar spine normal to inspection; normal cervical ROM Extremities: extremities normal to inspection Neurologic moves all extremities Motor/Sensory: no sensory deficit Psychiatric Orientation: alert and oriented x 3 Testing Laboratory Results 06/13/20 06:00
--- NOTE | 2020-06-13 07:13 | History & Physical Bridge Note ---
Date of Service June 13, 2020 History & Physical Bridge Note I have examined the patient, reviewed the History & Physical and in the interval since the performance of the History & Physical I have noted the following changes of clinical significance: no changes noted
[2020-06-13] MEDS ORDERED: fentaNYL citrate 100 MCG/2 ML VIAL ONE (07:16)
[2020-06-13] MEDS ORDERED: MoRPHine SULFATE PF 1 MG/ML 10 ML AMP/VIAL ONE (07:17)
[2020-06-13] MEDS ORDERED: OXYTOCIN 10 UNITS/ML VIAL ONE ×2 (07:17→08:14)
[2020-06-13] MEDS ORDERED: ONDANSETRON INJ 2 MG/ML 2 ML VIAL ONE ×2 (08:34→08:43)
[2020-06-13] MEDS ORDERED: DEXAMETHASONE SOD INJ 4 MG/ML VIAL ONE (08:34)
[2020-06-13] MEDS ORDERED: PHENYLEPHRINE 100MCG/ML 5ML SYR ONE (08:35)
--- NOTE | 2020-06-13 08:37 | Operative Report ---
PG Post Operative Report Pre & Post Diagnosis Operation Date: 06/13/20 07:30 Pre-Op Diagnosis: Repeat Caesarean Section; 39 Completed Weeks Post-Op Diagnosis: Same; Delivery of a live male child at 0805 I identified the patient and participated in the time-out.: Yes Procedure Operation Date: 06/13/20 07:30 Actual Procedures p Section in LD - Phong Porras MD, FACOG Surgeon Phong Porras MD, FACOG Assembler [employer] Dr. Silva Estimated Blood Loss 600 Findings Consistent with Post-Op Diagnosis Specimens cord blood, gases Description of Procedure Regional anesthetic was given by anesthesia patient had a Zabala catheter inserted by nursing patient was prepped and draped in supine position with a leftward tilt preoperative antibiotics were given timeout performed Pickups with teeth were used to test the skin site and it was found adequate for incision scalpel used to make a Pfannenstiel incision cutting down through subcutaneous fat through the fascia fascia was then dissected laterally with the curved Man's fascia was released superiorly and inferiorly from the rectus muscles with the curved Man scissors, rectus muscle split peritoneal cavity entered in a superior location. Opening enlarged to allow exposure. It should be noted there were minimal adhesions the lower segment was moderately thin but not abnormal, bladder retractor placed Metzenbaums used to dissect away the bladder flap low segment transverse incision made on the uterus with scalpel entry was done bluntly with the boiler room operator's finger hysterotomy incision extended with the boiler room operator's finger in the usual fashion baby was delivered then by flexion of the head and pressure from the emergency medicine physician assistant on the abdomen mouth and the n nares were suctioned baby was then delivered fully without difficulty without excessive force live vigorous infant cord clamped and cut cord gases obtained cord blood obtained placenta removed manually we ensured all placenta removed with a moist lap sponge uterus exteriorized IV Pitocin had been started by anesthesia and uterine tone improved. The uterus was closed in 2 layers first layer and 0 Monocryl running locked second layer 0 Monocryl nonlocked after generous irrigation and suction of the cul-de-sac and bladder flap regions hemostasis was excellent uterus was placed back in the peritoneal cavity and hemostasis was excellent rectus muscles were inspected and found to be dry fascia closed with 0 Vicryl subcutaneous fat closed with 3-0 Vicryl prior to this subcutaneous fat was irrigated skin closed with 4-0 subcuticular Monocryl incision Steri-Stripped urine was clear at the end of the procedure Adnexa and uterus were normal I attest to the content of the Intraoperative Record and any orders documented therein. Any exceptions are noted below. Procedure Pre-op/Post-op diagnoses: Pre-Op/Post-Op Diagnoses Operation Date: 06/13/20 07:30 Pre-Op Diagnosis: Repeat Caesarean Section; 39 Completed Weeks Post-Op Diagnosis: Same; Delivery of a live male child at 0805 Procedure: Procedures Operation Date: 06/13/20 07:30 Actual Procedures Side Surgeon p Section in LD Jerry. Wil Porras MD, FACOG
[2020-06-13 08:41] LABS: Base Excess Cord Arterial Bld -2.9 mEq/L (-9-1.8); CO2 Cord Arterial Blood 57 mmHg (39.1-73.5); HCO3 Cord Arterial Blood 25 mmol/L (19.7-28.5); PO2 Cord Arterial Blood 20 mmHg (4.1-31.7); pH Cord Arterial Blood 7.26 (7.1-7.38)
[2020-06-13] MEDS ORDERED: PROMETHAZINE HCL 25 MG in SODIUM CHLORIDE 0.9% 50 ML IV PRN ×2 (08:42→10:34)
[2020-06-13] MEDS ORDERED: ePHEDrine sulfate 50 MG/ML AMP IV PRN (08:42)
[2020-06-13] MEDS ORDERED: diphenhydrAMINE 50 MG/ML VIAL IV PRN (08:42)
[2020-06-13] MEDS ORDERED: NALOXONE HCL 0.4 MG/1 ML VIAL/CARP IV PRN (08:42)
[2020-06-13] MEDS ORDERED: NALOXONE HCL 0.08 MG in SYRINGE 1.8 ML IV PRN (08:42)
[2020-06-13] MEDS ORDERED: LACTATED RINGER'S 500 ML IV PRN (08:42)
[2020-06-13] MEDS ORDERED: KETOROLAC 30 MG/ML VIAL IV PRN (08:42)
[2020-06-13] MEDS ORDERED: MoRPHine SULFATE PF 1 MG/ML 10 ML AMP/VIAL INT SPINAL ONE (08:42)
[2020-06-13] MEDS ORDERED: ONDANSETRON INJ 2 MG/ML 2 ML VIAL IV PRN (08:42)
[2020-06-13] MEDS ORDERED: NALOXONE HCL 1 MG in SODIUM CHLORIDE 0.9% 1000ML 1,000 ML IV PRN (08:42)
[2020-06-13] MEDS ORDERED: SODIUM CHLORIDE 0.9% 1000ML 1,000 ML IV SCH (08:45)
[2020-06-13] MEDS ORDERED: NO NARCOTICS OR SEDATIVES SCH (08:45)
[2020-06-13] MEDS ORDERED: DC INTRASPINAL MORPHINE SCH (08:45)
[2020-06-13 08:46] LABS: Base Excess Cord Venous Blood -2.2 mEq/L (-7.7-1.9); Cord Venous Blood HCO3 23 mmol/L (18.4-26.8); Cord Venous Blood PCO2 41 mmHg (30.4-57.2); Cord Venous Blood PO2 35 mmHg (14.1-43.3); Cord Venous Blood pH 7.37 (7.20-7.44)
[2020-06-13 08:47] LABS: Oxygen Sat Cord Arterial Blood < 60.0 % (<60)
[2020-06-13] MEDS ORDERED: IBUPROFEN 600 MG TAB PO PRN (10:34)
[2020-06-13] MEDS ORDERED: SUPERCREAM 0.870% 15 GM JAR EXT PRN (10:34)
[2020-06-13] MEDS ORDERED: MAGNESIUM HYDROXIDE SUSP 30 ML UDC PO PRN (10:34)
[2020-06-13] MEDS ORDERED: SENNA 8.6 MG TAB PO PRN (10:34)
[2020-06-13] MEDS ORDERED: DIPHTHERIA/TETANUS/PERTUSSIS 0.5 ML SYR/VIAL IM ONE (10:34)
[2020-06-13] MEDS ORDERED: HYDROCORTISONE ACETATE 25 MG SUPP PR PRN (10:34)
[2020-06-13] MEDS ORDERED: BENZOCAINE 20% AER SPR 82.5 GM CAN EXT PRN (10:34)
[2020-06-13] MEDS: OXYTOCIN 20 UNITS in LACTATED RINGER'S 1,000 ML IV SCH ×2 (11:24→19:34)
--- NOTE | 2020-06-13 11:35 | Anesthesiology Progress Note ---
Date of Service June 13, 2020 Anesthesia Post Procedure Vital Signs Vital Signs: Temp Pulse Resp BP Pulse Ox 06/13/20 11:08 78 96 06/13/20 11:06 77 112/68 06/13/20 11:03 81 97 06/13/20 10:58 85 96 06/13/20 10:56 81 114/66 06/13/20 10:53 84 95 06/13/20 10:48 79 95 06/13/20 10:46 83 112/66 06/13/20 10:43 76 95 06/13/20 10:38 78 96 06/13/20 10:36 71 112/69 06/13/20 10:33 72 95 06/13/20 10:32 72 94 06/13/20 10:28 72 94 06/13/20 10:27 71 94 06/13/20 10:26 70 113/65 06/13/20 10:23 85 95 06/13/20 10:21 73 94 06/13/20 10:18 73 95 06/13/20 10:16 73 109/68 06/13/20 10:14 70 94 06/13/20 10:13 69 95 06/13/20 10:08 75 95 06/13/20 10:06 70 115/68 06/13/20 10:05 75 94 06/13/20 10:03 76 95 06/13/20 09:58 70 94 06/13/20 09:56 73 116/70 06/13/20 09:53 81 94 06/13/20 09:48 69 95 06/13/20 09:46 70 114/69 06/13/20 09:45 70 18 114/9 L 95 06/13/20 09:43 73 95 06/13/20 09:38 77 95 06/13/20 09:36 71 108/65 06/13/20 09:35 71 18 108/65 95 06/13/20 09:33 77 95 06/13/20 09:28 78 96 06/13/20 09:26 85 107/64 06/13/20 09:25 85 18 107/64 98 06/13/20 09:23 77 95 06/13/20 09:18 83 96 06/13/20 09:16 75 116/66 06/13/20 09:15 77 18 116/66 95 06/13/20 09:13 78 95 06/13/20 09:09 78 115/64 06/13/20 09:08 79 96 06/13/20 09:05 77 18 115/64 96 06/13/20 09:03 81 95 06/13/20 08:58 74 96 06/13/20 08:56 78 132/63 06/13/20 08:55 78 18 132/63 97 06/13/20 08:54 75 135/61 06/13/20 08:53 77 96 06/13/20 08:51 83 91 06/13/20 08:48 81 96 06/13/20 08:45 36.3 C L 82 16 131/70 97 06/13/20 08:44 87 93 06/13/20 08:43 87 131/70 96 06/13/20 07:16 81 120/75 06/13/20 07:10 36.4 C L 81 18 120/75 06/13/20 06:01 36.5 C 18 06/13/20 05:48 77 127/75 Transfer of Care Handoff Completed per policy Notes Mental Status: alert / awake / arousable Patient Amnestic to Procedure: Yes Nausea / Vomiting: adequately controlled Pain: adequately controlled Airway Patency, RR, SpO2: stable & adequate BP & HR: stable & adequate Hydration State: stable & adequate Neuraxial Anesthesia: was administered and sensory block is resolving Anesthetic Complications: no major complications apparent
[2020-06-13] MEDS: SIMETHICONE 80 MG CHEW PO SCH ×3 (12:59→20:35)
[2020-06-13] MEDS: SERTRALINE HCL 50 MG TABLET PO SCH (13:03)
--- NOTE | 2020-06-13 14:35 | Communication Note ---
Date of Service: June 13, 2020 After the first push, the patient had a 7 min contraction with corresponding response of the fetus. PLaced in hands and knees and just before giving terb, it stoppd. Baby now 130s with mod variability, and reCovered. Will attempt pushing again. Did discuss again with them that if the baby does not tolerate pushing, will need to proceed with c/s.
[2020-06-13] MEDS: DOCUSATE SODIUM 100 MG CAP PO SCH (20:35)
--- NOTE | 2020-06-14 06:05 | Obstetrical Progress Note ---
Date of Service <Scott Hogue MD - Last Filed: 06/14/20 06:28> June 14, 2020 Assessment & Plan <Scott Hogue MD - Last Filed: 06/14/20 06:28> (1) : - PNL: Rh pos, RI, GBS pos (received intrapartum penicillin G), COVID neg - Feels well today. Eating well, plan for OOB and Zabala cath removal this AM - Pain well controlled with ibuprofen 600mg Q4H PRN - Routine postoperative care -- OOB, ambulation, diet progression as tolerated - After discharge will have 6 week follow-up with Dr. Porras Day #:: 1 Subjective <Scott Hogue MD - Last Filed: 06/14/20 06:28> Nakia is a 35 y/o female who is POD #1 following repeat delivery at 39 weeks. She reports feeling well overall this morning. Light abdominal cramping and 2/10 pain well managed on analgesics. Zabala is still in. Tolerating meals overnight without difficulty. Patient has not ambulated yet. Is passing gas, no bowel movement yet. Has persistent lochia with some improvement this morning. Currently . Review of Systems Denies fever or chills. Denies shortness of breath or cough. Denies chest pain. Denies breast pain. Denies dysuria. Denies leg pain or leg swelling. Denies headache or changes in vision. Physical Exam <Scott Hogue MD - Last Filed: 06/14/20 06:28> General: Alert, oriented. No acute distress. Cardiac: Regular rate and rhythm. No murmurs. Respiratory: Clear to auscultation bilaterally a/p, no wheezes/rales/rhonchi. No increased work of breathing. Symmetrical chest rise. No respiratory distress. Abdomen: Soft, nontender, nondistended. Bowel sounds present. Uterus: Uterine fundus firm, palpable 1 cm below umbilicus. Surgical scar clean and healing well. Lower Extremities: No lower extremity edema or swelling. No deep calf pain. Tawanda's negative bilaterally. Results & Data ([facility]) <Scott Hogue MD - Last Filed: 06/14/20 06:28> Vital Signs (Past 12 Hours) Vital Signs Temp Pulse Resp BP Pulse Ox 06/14/20 04:45 16 94 06/14/20 03:55 36.8 C 78 16 112/66 95 06/14/20 02:30 18 95 06/14/20 01:30 16 94 06/14/20 00:45 16 94 06/13/20 23:10 36.6 C 71 18 122/74 95 06/13/20 22:15 16 96 06/13/20 21:30 18 95 06/13/20 20:30 18 97 06/13/20 19:35 36.6 C 87 16 121/75 96 <Patti Silva MD, FACOG - Last Filed: 06/14/20 06:51> Co-Signing Physician Notes Resident Physician Supervision Note: I interviewed and examined the patient. Discussed with Dr. Villalta and agree with findings and plan as documented in the note. Any exceptions or clarifications are listed here: Patient doing well, postop day 1. Did not receive intrapartum pcn as was a scheduled c/s not in labor. Zabala out--void, adat, no n/v, encourage ambulation. Documented By: Patti Silva MD, FACOG Resident Activity Tracking <Scott Hogue MD - Last Filed: 06/14/20 06:28> Resident Involvement: Resident Care Provided Care Provided: OB Delivery
[2020-06-14 06:38] LABS: Basophils # (auto) 0.01 K/uL (0-0.2); Basophils % (auto) 0.1 %; Eosinophils # (auto) 0.12 K/uL (0-0.5); Eosinophils % (auto) 1.1 %; Hematocrit (blood only) 32.8 % (37-47); Immature Granulocytes # (auto) 0.06 K/uL (0.00-0.02); Immature Granulocytes % (auto) 0.5 %; Lymphocytes # (auto) 1.63 K/uL (1.2-3.4); Lymphocytes % (auto) 14.9 %; Mean Corpuscular Hemoglobin 30.2 pg (25-34); Mean Corpuscular Hgb Conc 33.5 g/dL (32-36); Mean Corpuscular Volume 90.1 fL (80-100); Mean Platelet Volume 9.7 fL (7.4-10.4); Monocytes # (auto) 1.16 K/uL (0.11-0.59); Monocytes % (auto) 10.6 %; Neutrophils # (auto) 7.97 K/uL (1.4-6.5); Neutrophils % (auto) 72.8 %; Platelet Count 191 K/uL (130-400); RDW Coefficient of Variation 14.4 % (11.5-14.5); Red Blood Count 3.64 M/uL (4.2-5.4); White Blood Count 10.95 K/uL (4.8-10.8)
[2020-06-14] MEDS: DOCUSATE SODIUM 100 MG CAP PO SCH ×2 (08:40→20:34)
[2020-06-14] MEDS: PRENATAL VITAMIN 1 TAB PO SCH (08:40)
[2020-06-14] MEDS: FERROUS SULFATE 325 MG TAB PO SCH (08:40)
[2020-06-14] MEDS: CETIRIZINE HCL 10 MG TABLET PO SCH (08:40)
[2020-06-14] MEDS: SERTRALINE HCL 50 MG TABLET PO SCH (08:41)
[2020-06-14] MEDS: SIMETHICONE 80 MG CHEW PO SCH ×4 (08:41→20:35)
[2020-06-14] MEDS ORDERED: diphenhydrAMINE Capsule 25 MG CAP PO PRN (08:44)
[2020-06-14] MEDS ORDERED: MEPERIDINE HCL 50 MG/ML CARP IV PRN (08:44)
[2020-06-14] MEDS ORDERED: diphenhydrAMINE 50 MG/ML VIAL IV PRN (08:44)
[2020-06-14] MEDS ORDERED: ONDANSETRON INJ 2 MG/ML 2 ML VIAL IV PRN (08:44)
[2020-06-14] MEDS ORDERED: KETOROLAC 30 MG/ML VIAL IV PRN (08:44)
[2020-06-14] MEDS: oxyCODONE/ACETAMINOPHEN 5mg/325mg TAB PO PRN ×2 (09:05→18:20)
[2020-06-14] MEDS ORDERED: ACETAMINOPHEN 325 MG TAB ONE (13:04)
[2020-06-14] MEDS: ACETAMINOPHEN 325 MG TAB PO PRN (13:07)
[2020-06-14] MEDS ORDERED: bisacodyL 5 MG TABEC PO SCH (20:00)
[2020-06-14] MEDS ORDERED: IBUPROFEN 600 MG TAB PO PRN (20:12)
--- NOTE | 2020-06-15 06:16 | Obstetrical Progress Note ---
Date of Service <Scott Hogue MD - Last Filed: 06/15/20 07:16> June 15, 2020 Assessment & Plan <Scott Hogue MD - Last Filed: 06/15/20 07:16> (1) : - PNL: Rh pos, RI, GBS pos, COVID neg - Feels well today. Eating well, voiding well, ambulating well - Pain well controlled with ibuprofen 600mg Q4H PRN - Routine postoperative care -- OOB, ambulation, diet progression as tolerated - After discharge will have 6 week follow-up with Dr. Porras - Plan for discharge today Day #:: 2 Subjective <Scott Hogue MD - Last Filed: 06/15/20 07:16> Nakia is a 35 y/o female who is POD #2 following elective repeat c- section delivery at 39 weeks. She reports feeling well overall this morning. Li ght abdominal cramping and 0/10 pain well managed on analgesics. Voiding well. Tolerating meals overnight without difficulty. Patient has been able to ambulate some. Is passing gas and had bowel movement. Has persistent lochia with some improvement this morning. Currently . Review of Systems Denies fever or chills. Denies shortness of breath or cough. Denies chest pain. Denies breast pain. Denies dysuria. Denies leg pain or leg swelling. Denies headache or changes in vision. Physical Exam <Scott Hogue MD - Last Filed: 06/15/20 07:16> General: Alert, oriented. No acute distress. Cardiac: Regular rate and rhythm. No murmurs. Respiratory: Clear to auscultation bilaterally a/p, no wheezes/rales/rhonchi. No increased work of breathing. Symmetrical chest rise. No respiratory distress. Abdomen: Soft, nontender, nondistended. Bowel sounds present. Uterus: Uterine fundus firm, palpable 2 cm below umbilicus. Surgical scar clean and healing well. Lower Extremities: No lower extremity edema or swelling. No deep calf pain. Tawanda's negative bilaterally. Results & Data ([facility]) <Scott Hogue MD - Last Filed: 06/15/20 07:16> Vital Signs (Past 12 Hours) Vital Signs Temp Pulse Pulse Resp BP Pulse Ox 06/14/20 23:20 36.3 C L 66 18 120/72 06/14/20 21:00 36.5 C 68 16 134/81 98 <Doyle Salomon MD - Last Filed: 06/15/20 08:42> Co-Signing Physician Notes Patient evaluated and agree with the above findings and plan. Stable for discharge Resident Activity Tracking <Scott Hogue MD - Last Filed: 06/15/20 07:16> Resident Involvement: Resident Care Provided Care Provided: OB Delivery
[2020-06-15 06:57] LABS: Hematocrit (blood only) 32.4 % (37-47); Hemoglobin 10.6 g/dL (12.0-16.0)
[2020-06-15] MEDS: ACETAMINOPHEN 325 MG TAB PO PRN ×2 (07:01→10:54)
[2020-06-15] MEDS ORDERED: bisacodyL 10 MG SUPP PR PRN (08:24)
[2020-06-15] MEDS: FERROUS SULFATE 325 MG TAB PO SCH (08:34)
[2020-06-15] MEDS: SIMETHICONE 80 MG CHEW PO SCH ×2 (08:34→12:41)
[2020-06-15] MEDS: SERTRALINE HCL 50 MG TABLET PO SCH (08:34)
[2020-06-15] MEDS: PRENATAL VITAMIN 1 TAB PO SCH (08:34)
[2020-06-15] MEDS: DOCUSATE SODIUM 100 MG CAP PO SCH (08:34)
[2020-06-15] MEDS: CETIRIZINE HCL 10 MG TABLET PO SCH (08:34)
--- NOTE | 2020-06-17 13:20 | Discharge Summary ---
Date of Service June 17, 2020 Admission HPI Per Admitting Provider Previous C/S requests repeat, will be 39 completed weeks. Covid neg Admission Exam (Per Admitting) Constitutional WD/WN, vitals as above Respiratory normal respiratory effort, lungs clear to auscultation Cardiovascular RRR, no murmur, no edema Gastrointestinal (Abdomen) normal bowel sounds, soft, nontender, no hepatosplenomegaly Discharge Data Consultations 06/13/20 05:34 Consult Anesthesiology Stat Procedures Performed Operation Date: 06/13/20 07:30 Actual Procedures p Section in LD - J. Wil Porras MD, [facility] (1) Previous delivery affecting , antepartum: Repeat section. The patient was counseled to the nature of the procedure including alternatives such as labor. Risks were discussed including bleeding infection injury to bowel bladder ureter vessels and even baby. The risks of internal organ injury were discussed as being higher with prior sections. Deep Vein Thrombosis, pulmonary embolus and breakdown of the incision discussed. Deep vein thrombosis pulmonary embolus hernia and failure of the incision to heal were discussed Patient verbalized understanding of this and was given ample time to ask questions Postoperative from section patient meets discharge criteria as she is ambulating well tolerating an oral diet has minimal bleeding and no extremity pain. Discharge instructions were reviewed and prescriptions were sent to her pharmacy of choice patient advised to call with any concerns and follow-up in the office discussed Coding Level of Care Code None Diagnoses Previous delivery affecting , antepartum O34.219
== END 2020-06-15 14:00 | disposition home or self-care (01) | DRG 788 ==
LOC: 4S1 05:34 → EDSTATUS 08:50 → 4S2 11:31

== ENCOUNTER 2022-01-05 07:30 | Inpatient (IN) ==
--- NOTE | 2022-01-03 10:28 | Anesthesiology Consultation ---
Date of Service January 03, 2022 Assessment & Plan (1) Encounter for pre-operative examination: - COVID screening: Per assessment on 01/03: No known COVID-19 positive contacts or current COVID-19 related symptoms. Travel screen negative. Patient vaccinated. Surgeon arranging preop COVID testing. Awaiting results. - S/P Repeat elective c/s (06/13/20): SAB at L3-4 (x1 attempt) at [facility]. No issues per post-op anesthesia progress note. Chart Review Chart Review: licensed direct entry midwife initiated History Surgery Operation Date: 01/05/22 07:30 Proposed Procedures p Section in LD (Delivery of Baby through Abdominal Incision) - Phong Porras MD, FACOG Height/Weight Height: 5 ft 5 in Weight: 81.647 kg Allergies Allergy/AdvReac Type Severity Reaction Status Date / Time nickel Allergy Mild Rash Verified 01/03/22 10:22 ibuprofen [From Motrin] AdvReac Unknown Unknown Verified 01/03/22 09:35 Medications Home Medications Medication Instructions Recorded Confirmed Last Taken Lactobacil.acidophilus-Bifido.animalis 1 cap PO QAM 10/24/18 01/03/22 06/12/20 08:00 5 billion cell sprinkle capsule (Probiotic) cholecalciferol (vitamin D3) 25 1,000 unit PO QAM 10/24/18 01/03/22 06/12/20 08:00 mcg (1,000 unit) tablet (Vitamin D3) ferrous sulfate 325 mg (65 mg 325 mg PO QAM 10/24/18 01/03/22 06/12/20 08:00 iron) tablet (iron) flaxseed oil 1,000 mg capsule 1,000 mg PO QAM 10/24/18 01/03/22 06/12/20 08:00 garlic 1,000 mg capsule 1,000 mg PO QAM 10/24/18 01/03/22 06/12/20 08:00 magnesium 250 mg tablet 250 mg PO QAM 10/24/18 01/03/22 06/12/20 08:00 omega 8-crz-ajh-fish oil 1,000 mg 1 cap PO QAM 10/24/18 01/03/22 06/12/20 08:00 (120 mg-180 mg) capsule (Fish Oil) vitamin B complex 1 tab PO QAM 10/24/18 01/03/22 06/12/20 08:00 zinc 50 mg tablet 50 mg PO QAM 10/24/18 01/03/22 06/12/20 08:00 prenat.vits,kike,lcx-xwgu-dwxle 1 tab PO QAM 11/12/19 01/03/22 06/12/20 08:00 sertraline 50 mg tablet (Zoloft) 50 mg PO QAM 08/14/21 01/03/22 Unknown cetirizine 10 mg tablet (Zyrtec) 10 mg PO QAM 01/03/22 01/03/22 Unknown Past Medical History Medical History Cancer Dx 2014, Liver cancer (under surveillance with routine ultrasound, otherwise no other treatment at this time), last ultrasound 12/20/21 stated "Hepatic masses appear generally stable from prior" Crohns disease Liver lesion under surveillance with routine ultrasound Lung nodules under surveillance with routine imaging 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 Rodrigues Past Family History Family History Mother Heart disease Aunt Heart disease Grandmother Lung cancer Grandmother (Maternal) Heart disease Grandfather (Paternal) Heart disease Other No family history of adverse response to anesthesia No family history of bleeding disorder Denies family history of Ovarian cancer Breast cancer Colorectal cancer Past Surgical History Surgical History History of section x2--07/2017 History of colonoscopy 2018 History of liver biopsy diagnosed with liver cancer History of resection of terminal ileum ileum and appendix removed February 2019 History of tooth extraction History of umbilical hernia repair Social History Smoking Status: Former smoker tobacco type: cigarettes Do You Dip or Chew Tobacco: No Smoking End Date: quit 7yrs ago Hx Alcohol Use: No (prior to 1 glass of wine a week) Alcohol type: wine alcohol intake frequency: other Hx Substance Use: No substance use type: does not use Lab Results Anesthesia Preop Results Results Anesthesia Widget: WBC 9.72 K/uL (4.8-10.8) 12/15/21 Hgb 12.3 g/dL (12.0-16.0) 12/15/21 Hct 37.1 % (37-47) 12/15/21 Plt 294 K/uL (130-400) 12/15/21
[~2022-01-05 07:30] MED LIST changes: -BNT10 PO; -CHOL1000 PO; +CITRIC ACID/SODIUM CITRATE 15 ML UDC PO SCH; -CYAN100T PO; -DIGE1CAP10; -DOXY25TA8; -FLAX10007; -GARL1CAP6; +LACTATED RINGER'S 1,000 ML IV SCH; -MAGN400T6 PO; -MISCCAP80; -OMEG10007 PO; -OXYC-57 PO; -PRENTAB26 PO; -PYRI100T4 PO; -ZFR8 PO; -ZINC1CAP PO; +ceFAZolin 2,000 MG in SYRINGE 0 ML IV SCH
[2022-01-05] MEDS ORDERED: MoRPHine SULFATE PF 1 MG/ML 10 ML AMP/VIAL ONE (08:59)
[2022-01-05] MEDS ORDERED: fentaNYL citrate 100 MCG/2 ML VIAL ONE (08:59)
[2022-01-05 09:20] LABS: Hematocrit (blood only) 35.1 % (37-47); Hemoglobin 11.9 g/dL (12.0-16.0); Mean Corpuscular Hemoglobin 29.4 pg (25-34); Mean Corpuscular Hgb Conc 33.9 g/dL (32-36); Mean Corpuscular Volume 86.7 fL (80-100); Mean Platelet Volume 9.9 fL (7.4-10.4); Platelet Count 218 K/uL (130-400); RDW Coefficient of Variation 13.9 % (11.5-14.5); RDW Standard Deviation 43.5 fL (36.4-46.3); Red Blood Count 4.05 M/uL (4.2-5.4); White Blood Count 13.72 K/uL (4.8-10.8)
[2022-01-05 09:53] LABS: ALC (manual) 1.77 K/uL (1.2-3.4); ANC (manual) 11.36 K/uL (1.4-6.5); Lymphocytes # (manual) 1.77 K/uL (1.2-3.4); Lymphocytes % (manual) 12.9 %; Monocytes # (manual) 0.59 K/uL (0.11-0.59); Monocytes % (manual) 4.3 %; Neutrophils # (manual) 11.36 K/uL (1.4-6.5); Neutrophils % (manual) 82.8 %
--- NOTE | 2022-01-05 10:25 | History & Physical Bridge Note ---
Date of Service January 05, 2022 History & Physical Bridge Note I have examined the patient, reviewed the History & Physical and in the interval since the performance of the History & Physical I have noted the following changes of clinical significance: no changes noted
[2022-01-05] MEDS ORDERED: NALBUPHINE HCL INJ 10 MG/ML AMP IV PRN (11:00)
[2022-01-05] MEDS ORDERED: KETOROLAC 30 MG/ML VIAL IV PRN (11:00)
[2022-01-05] MEDS ORDERED: ePHEDrine sulfate 50 MG/ML AMP IV PRN (11:00)
[2022-01-05] MEDS ORDERED: MoRPHine SULFATE PF 1 MG/ML 10 ML AMP/VIAL INT SPINAL ONE (11:00)
[2022-01-05] MEDS ORDERED: SODIUM CHLORIDE 0.9% 1000ML 1,000 ML IV SCH (11:00)
[2022-01-05] MEDS ORDERED: NALOXONE HCL 1 MG in SODIUM CHLORIDE 0.9% 1000ML 1,000 ML IV PRN (11:00)
[2022-01-05] MEDS ORDERED: NALOXONE HCL 0.08 MG in SYRINGE 1.8 ML IV PRN (11:00)
[2022-01-05] MEDS ORDERED: MoRPHine SULFATE 2 MG/ML CARP IV PRN (11:00)
[2022-01-05] MEDS ORDERED: HYDROmorphone INJ 0.5 MG/0.5 ML SYR IV PRN (11:00)
[2022-01-05] MEDS ORDERED: NALOXONE HCL 0.4 MG/1 ML VIAL/CARP IV PRN (11:00)
[2022-01-05] MEDS ORDERED: LACTATED RINGER'S 500 ML IV PRN (11:00)
[2022-01-05] MEDS ORDERED: NO NARCOTICS OR SEDATIVES SCH (11:00)
[2022-01-05] MEDS ORDERED: DC INTRASPINAL MORPHINE SCH (11:00)
[2022-01-05] MEDS ORDERED: diphenhydrAMINE 50 MG/ML VIAL IV PRN (11:00)
[2022-01-05] MEDS ORDERED: ONDANSETRON INJ 2 MG/ML 2 ML VIAL ONE (11:26)
[2022-01-05] MEDS ORDERED: OXYTOCIN 10 UNITS/ML 10ML VIAL ONE (11:26)
[2022-01-05] MEDS ORDERED: PHENYLEPHRINE 100MCG/ML 5ML SYR ONE (11:26)
--- NOTE | 2022-01-05 11:40 | Operative Report ---
PG Post Operative Report Pre & Post Diagnosis Operation Date: 01/05/22 10:25 Pre-Op Diagnosis: Repeat Section Post-Op Diagnosis: Same; Delivery of live male child at 1113 I identified the patient and participated in the time-out.: Yes Procedure Operation Date: 01/05/22 10:25 Actual Procedures p Section (Delivery of Baby Through Abdominal Incision)(Bilateral) - Phong Porras MD, FACOG Surgeon Phong Porras MD, FACOG Manager Telemetry Dr. Krishnan Estimated Blood Loss 600 Findings Consistent with Post-Op Diagnosis Specimens cord blood Description of Procedure Regional anesthetic had been given by anesthesia patient was prepped and draped with a leftward tilt preoperative antibiotics had been given in appropriate timing by anesthesiology. Once the prep was allowed to fully dry timeout was performed. Pickups with teeth were used to test the incision area was found to be adequate for incision as the patient did not feel sharp pain. Scalpel was used to make a Pfannenstiel incision on the lower abdomen. We then cut through the subcutaneous fat down to the level of the anterior rectus sheath fascia this was cut in the midline and then extended laterally with the curved Man scissors. At this stage we then placed 2 Nyla clamps on the anterior aspect of the fascia. Using the curved Man's we are able to dissect the fascia superiorly away from the rectus muscles. Care was taken to maintain hemostasis. Nyla clamps were then placed to the inferior aspect of the anterior sheath of the fascia. Fascia was then dissected away from the rectus muscles inferiorly towards the pubic bone. A Nyla was then placed in the midline both inferiorly and superiorly. This was to allow exposure by retraction rectus muscles were in the midline with were then able to cut through the peritoneum and then enter the peritoneal cavity. Opening was enlarged to allow exposure of the peritoneal cavity both superiorly and inferiorly. Once adequate space was obtained a bladder retractor was placed to expose the lower segment Metzenbaums were used to dissect the bladder flap inferiorly away from the uterus. This was done sharply bladder retractor was then repositioned to expose the lower segment of the uterus Fresh scalpel was used to make a low transverse incision on the uterus. Uterus was then entered bluntly with the operators finger, membranes ruptured and the opening was enlarged using the operators fingers bluntly pulling superiorly and inferiorly to allow exposure. Baby was delivered by first flexion of the head elevation of the head out of the pelvis and then pressure by the financial legal assistant on the maternal abdomen. Baby's head was then delivered mouth and then nares were suctioned and then using gentle traction the baby was fully delivered. Live vigorous male . Fluid was clear cord clamped and cut cord gases obtained cord blood obtained baby handed to pediatrics. Placenta removed was removed with traction we ensure the entire placenta was removed with a moist lap sponge into the uterus Uterus was then exteriorized. IV Pitocin had been started by anesthesia tone improved there were no extensions the uterus was then closed using 0 Monocryl in a 2 layer closure the first layer closed in a running locked fashion from left to right and then a second closure from left to right in a running nonlocked fashion. At this stage hemostasis was excellent. Uterus was placed back in the peritoneal cavity with suction irrigation out and inspection of the uterus at this stage revealed excellent hemostasis Retractors were removed urine color was clear at this stage of the case we inspected the rectus muscles they were hemostatic fascia was closed with 0 Vicryl subcutaneous fat was irrigated and closed with 3-0 Vicryl skin closed with 4-0 subcuticular Monocryl I attest to the content of the Intraoperative Record and any orders documented therein. Any exceptions are noted below. OB Procedure Charges 63467
[2022-01-05] MEDS ORDERED: HYDROCORTISONE ACETATE 25 MG SUPP PR PRN (13:18)
[2022-01-05] MEDS ORDERED: MAGNESIUM HYDROXIDE SUSP 30 ML UDC PO PRN (13:18)
[2022-01-05] MEDS ORDERED: LACTATED RINGER'S 1,000 ML IV SCH (13:18)
[2022-01-05] MEDS ORDERED: DIPHTHERIA/TETANUS/PERTUSSIS 0.5 ML SYR/VIAL IM ONE (13:18)
[2022-01-05] MEDS ORDERED: SENNA 8.6 MG TAB PO PRN (13:18)
[2022-01-05] MEDS ORDERED: BENZOCAINE 20% AER SPR 82.5 GM CAN EXT PRN (13:18)
--- NOTE | 2022-01-05 13:20 | Anesthesia Procedure Note ---
Date of Service January 05, 2022 Anesthesia Post Epidural Note Vital Signs Vital Signs: Temp Pulse Resp BP Pulse Ox 36.6 C 76 20 139/67 97 01/05/22 09:42 01/05/22 13:17 01/05/22 12:55 01/05/22 13:17 01/05/22 13:16 Notes Mental Status: alert / awake / arousable and participated in evaluation Patient Amnestic to Procedure: No Nausea / Vomiting: adequately controlled Pain: adequately controlled Airway Patency, RR, SpO2: stable & adequate BP & HR: stable & adequate Hydration State: stable & adequate Neuraxial Anesthesia: was administered and sensory block is resolving Anesthetic Complications: no major complications apparent and Pt Satisfied with anesthetic care
[2022-01-05] MEDS: SIMETHICONE 80 MG CHEW PO SCH ×3 (13:37→20:40)
[2022-01-05] MEDS: OXYTOCIN 20 UNITS in LACTATED RINGER'S 1,000 ML IV SCH ×2 (14:43→22:17)
[2022-01-05] MEDS: DOCUSATE SODIUM 100 MG CAP PO SCH (20:40)
[2022-01-05] MEDS: KETOROLAC 30 MG/ML VIAL IV PRN (20:41)
[2022-01-06] MEDS ORDERED: oxyCODONE/ACETAMINOPHEN 5mg/325mg TAB PO PRN (05:00)
[2022-01-06] MEDS ORDERED: KETOROLAC 30 MG/ML VIAL IV PRN (05:00)
[2022-01-06] MEDS ORDERED: PROMETHAZINE HCL 25 MG in SODIUM CHLORIDE 0.9% 50 ML IV PRN (05:00)
[2022-01-06] MEDS ORDERED: diphenhydrAMINE 50 MG/ML VIAL IV PRN (05:00)
[2022-01-06] MEDS ORDERED: ONDANSETRON INJ 2 MG/ML 2 ML VIAL IV PRN (05:00)
[2022-01-06] MEDS ORDERED: diphenhydrAMINE Capsule 25 MG CAP PO PRN (05:00)
[2022-01-06] MEDS: KETOROLAC 30 MG/ML VIAL IV PRN ×4 (05:05→23:45)
--- NOTE | 2022-01-06 06:59 | Obstetrical Progress Note ---
Date of Service January 06, 2022 Assessment & Plan (1) Supervision of normal intrauterine in multigravida: POD#1 doing well. Ambulating, eating/drinking, pain controlled. Urinating ok. . Incision CDI. Goals for today: ambulate, hydrate. Anticipate DC home tomorrow. Subjective Ambulation: ambulating normally Voiding: no voiding problems Diet Tolerance:: regular diet Lochia:: Moderate Review of Systems All systems reviewed & are unremarkable except as noted in HPI & below Physical Exam Constitutional WD/WN, vitals as above no acute distress Respiratory normal respiratory effort Cardiovascular Rate/Rhythm: regular rate and regular rhythm Gastrointestinal (Abdomen) Inspection/Auscultation: abdomen normal to inspection; abdomen not distended Percussion/Palpation: abdomen soft Genitourinary OB Exam Abdomen: + fundal height Fundus: + firm; not tender Results & Data ([facility]) Vital Signs (Past 12 Hours) Vital Signs Temp Pulse Resp BP Pulse Ox 01/06/22 04:55 36.8 C 72 18 124/78 96 01/06/22 04:04 16 94 01/06/22 03:30 16 94 01/06/22 02:30 16 95 01/06/22 01:28 16 94 01/06/22 00:14 16 96 01/05/22 23:20 36.7 C 71 18 123/75 96 01/05/22 22:00 16 95 01/05/22 21:11 16 98 01/05/22 20:00 16 98 01/05/22 19:35 36.5 C 77 16 135/88 97
[2022-01-06 07:26] LABS: Basophils # (auto) 0.01 K/uL (0-0.2); Basophils % (auto) 0.1 %; Eosinophils % (auto) 2.1 %; Immature Granulocytes # (auto) 0.06 K/uL (0.00-0.02); Immature Granulocytes % (auto) 0.6 %; Lymphocytes # (auto) 1.69 K/uL (1.2-3.4); Lymphocytes % (auto) 17.8 %; Mean Corpuscular Hemoglobin 30.6 pg (25-34); Mean Corpuscular Hgb Conc 34.4 g/dL (32-36); Mean Corpuscular Volume 88.9 fL (80-100); Mean Platelet Volume 9.5 fL (7.4-10.4); Monocytes # (auto) 0.85 K/uL (0.11-0.59); Monocytes % (auto) 8.9 %; Neutrophils # (auto) 6.69 K/uL (1.4-6.5); Neutrophils % (auto) 70.5 %; Platelet Count 175 K/uL (130-400); RDW Standard Deviation 45.9 fL (36.4-46.3)
[2022-01-06] MEDS ORDERED: FERROUS SULFATE 325 MG TAB PO SCH (08:00)
[2022-01-06] MEDS: DOCUSATE SODIUM 100 MG CAP PO SCH ×2 (08:53→21:16)
[2022-01-06] MEDS: SERTRALINE HCL 50 MG TABLET PO SCH (08:53)
[2022-01-06] MEDS: SIMETHICONE 80 MG CHEW PO SCH ×4 (08:53→21:16)
[2022-01-06] MEDS: PRENATAL VITAMIN 1 TAB PO SCH (08:53)
[2022-01-06] MEDS: CETIRIZINE HCL 10 MG TABLET PO SCH (08:54)
[2022-01-06] MEDS ORDERED: bisacodyL 5 MG TABEC PO SCH (20:00)
[2022-01-07] MEDS: KETOROLAC 30 MG/ML VIAL IV PRN (06:36)
[2022-01-07 06:52] LABS: Hematocrit (blood only) 35.3 % (37-47); Hemoglobin 11.9 g/dL (12.0-16.0)
--- NOTE | 2022-01-07 07:23 | Obstetrical Progress Note ---
Date of Service January 07, 2022 Assessment & Plan (1) Supervision of normal intrauterine in multigravida: Postop day #2 patient is doing well ambulating tolerating oral diet her incision is clean dry and intact she has no extremity pain she wishes discharge this will be planned for today prescription sent to her pharmacy recommend follow-up in 6 weeks Subjective Ambulation: ambulating normally Voiding: no voiding problems Passing Gas:: Yes Diet Tolerance:: regular diet Lochia:: Small Results & Data ([facility]) Vital Signs (Past 12 Hours) Vital Signs Temp Pulse Resp BP Pulse Ox 01/06/22 23:45 98.1 F 73 17 143/80 H 96 01/06/22 21:05 98.2 F 77 16 128/77 97
[2022-01-07] MEDS: PRENATAL VITAMIN 1 TAB PO SCH (07:52)
[2022-01-07] MEDS: DOCUSATE SODIUM 100 MG CAP PO SCH (07:52)
[2022-01-07] MEDS: SIMETHICONE 80 MG CHEW PO SCH (07:52)
[2022-01-07] MEDS: SERTRALINE HCL 50 MG TABLET PO SCH (07:52)
[2022-01-07] MEDS: CETIRIZINE HCL 10 MG TABLET PO SCH (07:52)
[2022-01-07] MEDS ORDERED: bisacodyL 10 MG SUPP PR PRN (11:41)
--- NOTE | 2022-01-10 07:26 | Discharge Summary ---
Date of Service January 10, 2022 Admission Exam (Per Admitting) Constitutional WD/WN, vitals as above well developed and well nourished Respiratory normal respiratory effort, lungs clear to auscultation normal respiratory effort Cardiovascular RRR, no murmur, no edema Gastrointestinal (Abdomen) normal bowel sounds, soft, nontender, no hepatosplenomegaly Discharge Data Consultations 01/05/22 08:51 Consult Anesthesiology Stat Procedures Performed Operation Date: 01/05/22 10:25 Actual Procedures p Section (Delivery of Baby Through Abdominal Incision)(Bilateral) - Phong Porras MD, [facility] (1) Supervision of normal intrauterine in multigravida: Postop day #2 patient is doing well ambulating tolerating oral diet her incision is clean dry and intact she has no extremity pain she wishes discharge this will be planned for today prescription sent to her pharmacy recommend follow-up in 6 weeks Coding Level of Care Code None Diagnoses Supervision of normal intrauterine in multigravida Z34.80
== END 2022-01-07 01:15 | disposition home or self-care (01) | DRG 788 ==
LOC: EDSTATUS 07:30 → 4S1 08:37 → 4E2 15:03

== ENCOUNTER 2025-02-26 07:13 | Inpatient (IN) ==
--- NOTE | 2025-02-15 15:22 | Anesthesiology Consultation ---
Date of Service February 15, 2025 Assessment & Plan (1) Encounter for pre-operative examination: - Per frontload driver on 02/15/25: No known infectious disease contacts, current infectious disease symptoms in past 10 days or COVID positive test result in the past 30 days. Chart Review Chart Review: blasting entry specialist initiated History Surgery Operation Date: 02/26/25 07:30 Proposed Procedures p Section (Delivery of Baby Through Abdominal Incision) - Phong Porras MD, FACOG s with Bilateral Tubal Ligation - Phong Porras MD, FACOG Height/Weight Height: 5 ft 5 in Weight: 90.265 kg Allergies Allergy/AdvReac Type Severity Reaction Status Date / Time nickel Allergy Mild Rash Verified 02/15/25 14:05 Medications Home Medications Medication Instructions Recorded Confirmed Last Taken Lactobacil.acidophilus-Bifido.animalis 1 cap PO QAM 10/24/18 02/15/25 2 Weeks Ago 5 billion cell sprinkle capsule ~01/24/24 (Probiotic) cholecalciferol (vitamin D3) 25 1,000 unit PO QAM 10/24/18 02/15/25 2 Weeks Ago mcg (1,000 unit) tablet (Vitamin ~01/24/24 D3) ferrous sulfate 325 mg (65 mg 325 mg PO QAM 10/24/18 02/15/25 2 Weeks Ago iron) tablet (iron) ~01/24/24 flaxseed oil 1,000 mg capsule 1,000 mg PO QAM 10/24/18 02/15/25 2 Weeks Ago ~01/24/24 garlic 1,000 mg capsule 1,000 mg PO QAM 10/24/18 02/15/25 2 Weeks Ago ~01/24/24 magnesium 250 mg tablet 250 mg PO QAM 10/24/18 02/15/25 2 Weeks Ago ~01/24/24 omega 5-zmq-krd-fish oil 1,000 mg 1 cap PO QAM 10/24/18 02/15/25 2 Weeks Ago (120 mg-180 mg) capsule (Fish Oil) ~01/24/24 vitamin B complex 1 tab PO QAM 10/24/18 02/15/25 2 Weeks Ago ~01/24/24 zinc 50 mg tablet 50 mg PO QAM 10/24/18 02/15/25 2 Weeks Ago ~01/24/24 sumatriptan succinate 50 mg tablet 50 mg PO QAM PRN MIGRAINES 01/09/24 02/15/25 1 Month Ago ~01/07/24 loratadine 10 mg tablet (Claritin) 10 mg PO DAILY PRN Allergy Symptoms 01/27/24 02/15/25 02/06/24 08:00 sertraline 100 mg tablet (Zoloft) 150 mg PO DAILY 08/18/24 02/15/25 Unknown ondansetron 4 mg disintegrating 4 mg PO Q6H PRN nausea and 09/23/24 02/15/25 Unknown tablet vomiting #20 tabs vitamins no.159-iron 1 tab PO QAM 02/15/25 02/15/25 Unknown fumarate 28 mg-folic acid 800 mcg tablet ( Vitamin) Past Medical History Medical History Cancer Dx 2014, Liver cancer (under surveillance with routine ultrasound, otherwise no other treatment at this time), last ultrasound 12/20/21 stated "Hepatic masses appear generally stable from prior" Crohns disease "no issues since surgery" Liver lesion under surveillance with routine ultrasound Lung nodules under surveillance with routine imaging Migraines Past Family History Family History Mother Heart disease Aunt Heart disease Grandmother Lung cancer Grandmother (Maternal) Heart disease Grandfather (Paternal) Heart disease Other No family history of adverse response to anesthesia No family history of bleeding disorder Denies family history of Ovarian cancer Breast cancer Colorectal cancer Past Surgical History Surgical History History of section x3--07/2017 History of colonoscopy last 2018 History of liver biopsy diagnosed with liver cancer History of resection of terminal ileum ileum and appendix removed February 2019 History of tooth extraction History of umbilical hernia repair Social History Smoking Status: Former smoker tobacco type: cigarettes Do You Dip or Chew Tobacco: No Smoking End Date: QUIT 10 YRS AGO Hx Alcohol Use: No (none while ) Alcohol type: wine alcohol intake frequency: other Hx Substance Use: No substance use type: does not use Lab Results Anesthesia Preop Results Results Anesthesia Widget: Hgb 10.7 g/dl (12.0-16.0) L 12/25/24 Hct 32.5 % (37.0-47.0) L 12/25/24 Testing Other Testing Chest CT 04/04/24 1. Innumerable subcentimeter pulmonary nodules are again seen throughout both lungs.This has not appreciably changed as compared to 04/09/2022. 2. There is no mediastinal lymphadenopathy. 3. No airspace consolidation typical for pneumonia or pleural effusion is identified. 4. Low-attenuation hepatic lesions seen by MRI are not well visualized on today 's unenhanced CT scan.
[2025-02-26] MEDS: LACTATED RINGER'S 1,000 ML IV SCH ×4 (07:55→23:21)
[2025-02-26 08:02] LABS: Hematocrit (blood only) 35.5 % (37.0-47.0); Hemoglobin 12.3 g/dl (12.0-16.0); Immature Granulocytes # (auto) 0.07 K/uL (0.01-0.20); Immature Granulocytes % (auto) 0.7 %; Mean Corpuscular Hemoglobin 29.2 pg (25.0-34.0); Mean Corpuscular Volume 84.3 fL (80.0-100.0); Platelet Count 230 K/uL (130-400); RDW Standard Deviation 44.3 fL (36.4-46.3); Red Blood Count 4.21 M/uL (4.20-5.40); White Blood Count 9.58 K/ul (4.8-10.8)
[2025-02-26] MEDS: ACETAMINOPHEN 500 MG TAB PO SCH ×2 (08:13→10:10)
--- NOTE | 2025-02-26 08:50 | History & Physical Report ---
Date of Service February 26, 2025 Assessment & Plan (1) Previous delivery affecting , antepartum: Plan: section and bilateral tubal ligation. The patient was counseled to the nature of the procedure including alternatives such as labor. Risks were discussed including bleeding infection injury to bowel bladder ureter vessels and even baby. Deep Vein thrombosis, pulmonary embolus and breakdown of the incision discussed. Failure of the tubal and regret were also reviewed Deep vein thrombosis pulmonary embolus hernia and failure of the incision to heal were discussed. Failure of the tubal and possible regret were discussed Patient verbalized understanding of this and was given ample time to ask questions Admission and Anticipated Discharge Date Admission Date: February 26, 2025 History of Present Illness Primary Care Provider: Debby Stevens DO Visit ALYSSIA Calculator Estimated Delivery Date Method Current WG Current Estimate 03/02/25 LMP (Certain) 39w 2d Other Estimates 02/26/25 Ultrasound #1 39w 6d LMP: 05/26/24 : 5 Full term: 3 Premature: 0 Total Number of Induced Abortions: 0 Total Number of Spontaneous Abortions: 1 Ectopics: 0 Multiple births: 0 Number of Living Children: 3 and Delivery Plans Hemangioendothelial sarcoma --liver and lungs, 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 BOWERS AND DR[address] ERICA FELICIANO AMA *Weekly NST's @ 36wks. *Rubella Equivocal- Rec MMR PP Mild pyelactasis--> resolved. Allergies Allergy/AdvReac Type Severity Reaction Status Date / Time nickel Allergy Mild Rash Verified 02/25/25 10:25 Home Medications Medication Instructions Recorded Confirmed Type Lactobacil.acidophilus-Bifido.animalis 1 cap PO QAM 10/24/18 02/26/25 History 5 billion cell sprinkle capsule (Probiotic) cholecalciferol (vitamin D3) 25 1,000 unit PO QAM 10/24/18 02/26/25 History mcg (1,000 unit) tablet (Vitamin D3) ferrous sulfate 325 mg (65 mg 325 mg PO QAM 10/24/18 02/26/25 History iron) tablet (iron) flaxseed oil 1,000 mg capsule 1,000 mg PO QAM 10/24/18 02/26/25 History garlic 1,000 mg capsule 1,000 mg PO QAM 10/24/18 02/26/25 History magnesium 250 mg tablet 250 mg PO QAM 10/24/18 02/26/25 History omega 3-ryl-ucc-fish oil 1,000 mg 1 cap PO QAM 10/24/18 02/26/25 History (120 mg-180 mg) capsule (Fish Oil) vitamin B complex 1 tab PO QAM 10/24/18 02/26/25 History zinc 50 mg tablet 50 mg PO QAM 10/24/18 02/26/25 History sumatriptan succinate 50 mg tablet 50 mg PO QAM PRN MIGRAINES 01/09/24 02/26/25 History loratadine 10 mg tablet (Claritin) 10 mg PO DAILY PRN Allergy Symptoms 01/27/24 02/26/25 History sertraline 100 mg tablet (Zoloft) 150 mg PO DAILY 08/18/24 02/26/25 History ondansetron 4 mg disintegrating 4 mg PO Q6H PRN nausea and 09/23/24 02/26/25 Rx tablet vomiting #20 tabs vitamins no.159-iron 1 tab PO QAM 02/15/25 02/26/25 History fumarate 28 mg-folic acid 800 mcg tablet ( Vitamin) Patient History Medical History Cancer Dx 2014, Liver cancer (under surveillance with routine ultrasound, otherwise no other treatment at this time), last ultrasound 12/20/21 stated "Hepatic masses appear generally stable from prior" Crohns disease "no issues since surgery" Liver lesion under surveillance with routine ultrasound Lung nodules under surveillance with routine imaging Migraines Surgical History History of section x3--07/2017 History of colonoscopy last 2018 History of liver biopsy diagnosed with liver cancer History of resection of terminal ileum ileum and appendix removed February 2019 History of tooth extraction History of umbilical hernia repair Family History Mother Heart disease Aunt Heart disease Grandmother Lung cancer Grandmother (Maternal) Heart disease Grandfather (Paternal) Heart disease Other No family history of adverse response to anesthesia No family history of bleeding disorder Denies family history of Ovarian cancer Breast cancer Colorectal cancer Social History Smoking Status: Former smoker Tobacco Type: Cigarettes packs per day: 1; Smoking End Date: QUIT 10 YRS AGO; Second Hand Exposure: No; Do You Dip or Chew Tobacco: No; Tobacco Cessation Education Requested by Patient: No Hx Alcohol Use: No Hx Substance Use: No Preferred Language: Lithuanian Communication Ability: Effective Cad Technician Required: No Beliefs That Will Affect Care: None marital status: marital status details: Riki Oswald (42) [phone] Current Living Situation: Parent and Family Current Living Situation Comment: , 3 kids, 2 dogs current occupational status: unemployed current occupation: homemaker Other Information That Helps Us Care for You: No Feels Safe at Home: Yes Safety Concerns: Feels Safe At This Time Assistive Devices: None Physical Exam Constitutional: WD/WN, vitals as above well developed and well nourished Respiratory: normal respiratory effort, lungs clear to auscultation normal respiratory effort Cardiovascular: RRR, no murmur, no edema Gastrointestinal (Abdomen): normal bowel sounds, soft, nontender, no hepatosplenomegaly Results & Data Vital Signs (Past 12 Hours) Vital Signs Temp Pulse BP 02/26/25 07:51 90 118/68 02/26/25 07:35 97.7 F Coding Level of Care Code None Diagnoses Previous delivery affecting , antepartum O34.219
[2025-02-26] MEDS: CITRIC ACID/SODIUM CITRATE 15 ML UDC PO SCH ×2 (10:09→11:04)
[2025-02-26] MEDS ORDERED: MoRPHine SULFATE PF 1 MG/ML 10 ML AMP/VIAL ONE (11:14)
[2025-02-26] MEDS ORDERED: OXYTOCIN 10 UNITS/ML VIAL ONE (11:29)
[2025-02-26] MEDS ORDERED: ONDANSETRON INJ 2 MG/ML 2 ML VIAL ONE (12:07)
[2025-02-26] MEDS ORDERED: PHENYLEPHRINE HCL 25 MG/250 ML NSS IV ONE (12:07)
--- NOTE | 2025-02-26 12:17 | Operative Report ---
Post Operative Report Pre & Post Diagnosis Operation Date: 02/26/25 08:50 Pre-Op Diagnosis: Previous section delivery affecting , antepartum. Post-Op Diagnosis: Same I identified the patient and participated in the time-out.: Yes Procedure Operation Date: 02/26/25 08:50 Actual Procedures p Section in Labor and Delivery for live make at 1142(Not Applicable) - Phong Porras MD, FACOG bilateral saplingectomy Surgeon Phong Porras MD, FACOG Aviation Safety Officer Dr. Salomon Quantitative Blood Loss (QBL) 509 Findings Consistent with Post-Op Diagnosis Specimens cord blood Description of Procedure Regional anesthetic had been given by anesthesia patient was prepped and draped with a leftward tilt preoperative antibiotics had been given in appropriate timing by anesthesiology. Once the prep was allowed to fully dry timeout was performed. Pickups with teeth were used to test the incision area was found to be adequate for incision as the patient did not feel sharp pain. Scalpel was used to make a Pfannenstiel incision on the lower abdomen. We then cut through the subcutaneous fat down to the level of the anterior rectus sheath fascia this was cut in the midline and then extended laterally with the curved Man scissors. At this stage we then placed 2 Nyla clamps on the anterior aspect of the fascia. Using the curved Man's we are able to dissect the fascia superiorly away from the rectus muscles. Care was taken to maintain hemostasis. Nyla clamps were then placed to the inferior aspect of the anterior sheath of the fascia. Fascia was then dissected away from the rectus muscles inferiorly towards the pubic bone. A Nyla was then placed in the midline both inferiorly and superiorly. This was to allow exposure by retraction rectus muscles were in the midline with were then able to cut through the peritoneum and then enter the peritoneal cavity. Opening was enlarged to allow exposure of the peritoneal cavity both superiorly and inferiorly. Once adequate space was obtained a bladder retractor was placed to expose the lower segment Metzenbaums were used to dissect the bladder flap inferiorly away from the uterus. This was done sharply bladder retractor was then repositioned to expose the lower segment of the uterus Fresh scalpel was used to make a low transverse incision on the uterus. Uterus was then entered bluntly with the operators finger, membranes ruptured and the opening was enlarged using the operators fingers bluntly pulling superiorly and inferiorly to allow exposure. Baby was delivered by first flexion of the head elevation of the head out of the pelvis and then pressure by the mailroom assistant on the maternal abdomen initially this was not successful so we applied a Kiwi vacuum from 1 easy pull and then delivered the baby's head. Baby's head was then delivered mouth and then nares were suctioned and then using gentle traction the baby was fully delivered. Live vigorous infant. Fluid was clear cord clamped and cut cord gases obtained cord blood obtained baby handed to pediatrics. Placenta removed was removed with traction we ensure the entire placenta was removed with a moist lap sponge into the uterus Uterus was then exteriorized. IV Pitocin had been started by anesthesia tone improved there were no extensions the uterus was then closed using 0 Monocryl in a 2 layer closure the first layer closed in a running locked fashion from left to right and then a second closure from left to right in a running nonlocked fashion. At this stage hemostasis was excellent. Patient requested tubal and was consented for this grabbing the right fallopian tube with a [place] and then using the LigaSure we carefully coagulated and cut the vascular supply to the fallopian tube all the way to the end of the tube and then cut through the tube close to the uterus with the LigaSure same process repeated on the right side note we did inspect the areas where the tubal was done after placement back in the peritoneal cavity and the uterus was hemostatic including the tubal ligation sites Uterus was placed back in the peritoneal cavity with suction irrigation out and inspection of the uterus at this stage revealed excellent hemostasis Retractors were removed urine color was clear at this stage of the case we inspected the rectus muscles they were hemostatic fascia was closed with 0 Vicryl subcutaneous fat was irrigated and closed with 3-0 Vicryl skin closed with 4-0 subcuticular Monocryl I attest to the content of the Intraoperative Record and any orders documented therein. Any exceptions are noted below. OB Procedure Charges [id number] Add on Tubal for C/S
[2025-02-26] MEDS ORDERED: HYDROCORTISONE ACETATE 25 MG SUPP PR PRN (12:22)
[2025-02-26] MEDS ORDERED: DIPHTHER/TETAN/PERTUS Vaccine (Tdap, Adol/Adult) 0.5mL IM ONE (12:22)
[2025-02-26] MEDS ORDERED: diphenhydrAMINE 50 MG/ML VIAL IV PRN (12:22)
[2025-02-26] MEDS ORDERED: BENZOCAINE 20% SPRY 85 APPLN/85 GM CAN EXT PRN (12:22)
[2025-02-26] MEDS ORDERED: SENNA 8.6 MG TAB PO PRN (12:22)
[2025-02-26] MEDS ORDERED: MAGNESIUM HYDROXIDE SUSP 30 ML UDC PO PRN (12:22)
[2025-02-26] MEDS ORDERED: diphenhydrAMINE Capsule 25 MG CAP PO PRN (12:22)
[2025-02-26] MEDS ORDERED: NALOXONE HCL 0.4 MG/1 ML VIAL/CARP IV PRN (12:24)
[2025-02-26] MEDS ORDERED: MEPERIDINE HCL 25 MG/ML CARP/VIAL IV PRN (12:24)
[2025-02-26] MEDS ORDERED: ONDANSETRON INJ 2 MG/ML 2 ML VIAL IV PRN (12:24)
[2025-02-26] MEDS ORDERED: MoRPHine SULFATE PF 1 MG/ML 10 ML AMP/VIAL INT SPINAL ONE (12:24)
[2025-02-26] MEDS ORDERED: HYDROmorphone INJ 0.5 MG/0.5 ML SYR IV PRN (12:24)
[2025-02-26] MEDS ORDERED: NALOXONE HCL 1 MG in SODIUM CHLORIDE 0.9% 1,000 ML IV PRN (12:24)
[2025-02-26] MEDS ORDERED: LACTATED RINGER'S 500 ML IV PRN (12:24)
[2025-02-26] MEDS ORDERED: PROMETHAZINE 6.25 MG/50.25 ML BAG IV PRN (12:24)
[2025-02-26] MEDS ORDERED: MoRPHine SULFATE 2 MG/ML CARP IV PRN (12:24)
[2025-02-26] MEDS ORDERED: NALOXONE HCL 0.08 MG in SYRINGE 1.8 ML IV PRN (12:24)
[2025-02-26] MEDS ORDERED: NALBUPHINE HCL INJ 10 MG/ML AMP IV PRN (12:24)
--- NOTE | 2025-02-26 12:26 | Anesthesiology Progress Note ---
Date of Service February 26, 2025 Anesthesia Post Procedure Vital Signs Vital Signs: Temp Pulse BP Pulse Ox 02/26/25 12:24 75 94 02/26/25 12:23 74 95 02/26/25 12:19 81 113/63 02/26/25 12:18 81 93 02/26/25 07:51 90 118/68 02/26/25 07:35 36.5 C Transfer of Care Handoff Completed per policy Notes Mental Status: alert / awake / arousable Nausea / Vomiting: adequately controlled Pain: adequately controlled Airway Patency, RR, SpO2: stable & adequate BP & HR: stable & adequate Hydration State: stable & adequate Neuraxial Anesthesia: was administered and sensory block is resolving Anesthetic Complications: no major complications apparent and Pt Satisfied with anesthetic care
[2025-02-26] MEDS ORDERED: DC INTRASPINAL MORPHINE SCH (12:30)
[2025-02-26] MEDS ORDERED: NO NARCOTICS OR SEDATIVES SCH (12:30)
[2025-02-26] MEDS ORDERED: SODIUM CHLORIDE 0.9% 1,000 ML IV SCH (12:30)
[2025-02-26] MEDS: OXYTOCIN 20 UNITS/LR 1,002 ML IV SCH (13:08)
[2025-02-26] MEDS: SIMETHICONE 80 MG CHEW PO SCH (15:54)
[2025-02-26] MEDS: KETOROLAC 30 MG/ML VIAL IV SCH (17:08)
[2025-02-26] MEDS: ACETAMINOPHEN 325 MG TAB PO SCH (18:24)
[2025-02-26] MEDS: DOCUSATE SODIUM 100 MG CAP PO SCH (21:30)
[2025-02-26] MEDS: diphenhydrAMINE 50 MG/ML VIAL IV PRN (21:35)
[2025-02-27] MEDS ORDERED: diphenhydrAMINE 50 MG/ML VIAL IV PRN (06:25)
[2025-02-27] MEDS ORDERED: ONDANSETRON INJ 2 MG/ML 2 ML VIAL IV PRN (06:25)
[2025-02-27] MEDS ORDERED: diphenhydrAMINE Capsule 25 MG CAP PO PRN (06:25)
[2025-02-27] MEDS ORDERED: PROMETHAZINE 12.5 MG/50.5 ML BAG IV PRN (06:25)
[2025-02-27] MEDS ORDERED: LORATADINE 10 MG TAB PO PRN (06:25)
[2025-02-27 06:37] LABS: Hematocrit (blood only) 32.1 % (37.0-47.0); Hemoglobin 10.9 g/dl (12.0-16.0); Immature Granulocytes # (auto) 0.07 K/uL (0.01-0.20); Immature Granulocytes % (auto) 0.8 %; Mean Corpuscular Hemoglobin 29.5 pg (25.0-34.0); Mean Corpuscular Volume 86.8 fL (80.0-100.0); Platelet Count 188 K/uL (130-400); RDW Standard Deviation 46.7 fL (36.4-46.3); Red Blood Count 3.70 M/uL (4.20-5.40); White Blood Count 8.51 K/ul (4.8-10.8)
--- NOTE | 2025-02-27 06:49 | Obstetrical Progress Note ---
Date of Service February 27, 2025 Assessment & Plan (1) Early stage of : Postoperative day #1 the patient is doing well ambulating no excessive bleeding no extremity pain continue current care Subjective Ambulation: ambulating normally Voiding: no voiding problems Passing Gas:: Yes Diet Tolerance:: regular diet Lochia:: Small Physical Exam Constitutional WD/WN, vitals as above well developed and well nourished Respiratory normal respiratory effort, lungs clear to auscultation normal respiratory effort Cardiovascular RRR, no murmur, no edema Gastrointestinal (Abdomen) normal bowel sounds, soft, nontender, no hepatosplenomegaly Results & Data Vital Signs (Past 12 Hours) Vital Signs Temp Pulse Resp BP Pulse Ox Pulse Ox O2 Del Method 02/27/25 05:33 16 97 02/27/25 03:36 98.1 F 68 16 116/73 96 Room Air 02/27/25 03:06 16 96 02/27/25 02:00 16 96 02/27/25 01:00 16 95 02/27/25 00:00 16 98 02/26/25 23:00 16 94 02/26/25 22:47 97.9 F 71 16 121/73 98 Room Air 02/26/25 21:59 16 98 02/26/25 21:00 16 96 02/26/25 19:40 16 98 02/26/25 19:14 98 02/26/25 19:12 16 98 02/26/25 19:07 98.1 F 72 16 124/78 98 Room Air O2 Del Method 02/27/25 05:33 02/27/25 03:36 02/27/25 03:06 02/27/25 02:00 02/27/25 01:00 02/27/25 00:00 02/26/25 23:00 02/26/25 22:47 02/26/25 21:59 02/26/25 21:00 02/26/25 19:40 02/26/25 19:14 Room Air 02/26/25 19:12 02/26/25 19:07
[2025-02-27] MEDS ORDERED: SERTRALINE HCL 50 MG TABLET PO SCH (09:00)
[2025-02-27] MEDS: FERROUS SULFATE 325 MG TAB PO SCH (10:16)
[2025-02-27] MEDS: SERTRALINE HCL 50 MG TABLET PO SCH (10:17)
[2025-02-27] MEDS: PRENATAL VITAMIN 1 TAB PO SCH (10:17)
[2025-02-27] MEDS: CALCIUM CARBONATE 500 MG CHEWABLE TAB PO PRN (14:57)
[2025-02-27] MEDS: KETOROLAC 30 MG/ML VIAL IV PRN (18:20)
[2025-02-27 22:53] VITALS: O2SAT 98
[2025-02-27] MEDS: HYDROmorphone INJ 0.5 MG/0.5 ML SYR IV PRN (23:02)
[2025-02-28 06:38] LABS: Hematocrit (blood only) 30.5 % (37.0-47.0); Hemoglobin 10.3 g/dl (12.0-16.0)
[2025-02-28 08:32] VITALS: PULSE 72; RESP 18; TEMP 97.9
--- NOTE | 2025-02-28 08:45 | Obstetrical Progress Note ---
Date of Service February 28, 2025 Assessment & Plan (1) Encounter for care and examination after delivery: day 2 status post repeat . Patient doing well. Stable for discharge as preferred. Subjective Ambulation: ambulating normally Voiding: no voiding problems Passing Gas:: Yes Diet Tolerance:: regular diet Lochia:: Moderate Physical Exam Constitutional WD/WN, vitals as above Respiratory normal respiratory effort; no respiratory distress and no labored breathing Cardiovascular Extremities: no calf tenderness Gastrointestinal (Abdomen) Inspection/Auscultation: abdomen normal to inspection; abdomen not distended Percussion/Palpation: abdomen soft; abdomen nontender, no guarding and abdomen not rigid Incision clean, dry and intact Genitourinary OB Exam Abdomen: + fundal height Fundus: + firm and + relation to umbilicus (Below); not tender or not boggy Results & Data Vital Signs (Past 12 Hours) Vital Signs Temp Pulse Resp BP Pulse Ox O2 Del Method 02/28/25 08:15 Room Air 02/28/25 08:15 36.6 C 72 18 122/81 98 Room Air 02/27/25 22:52 36.4 C L 66 16 136/88 98 Room Air
[2025-02-28 15:07] VITALS: BP 139/85
[2025-02-28] MEDS ORDERED: ACETAMINOPHEN 325 MG TAB PO PRN (18:12)
== END 2025-02-28 15:50 | disposition home or self-care (01) | DRG 785 ==
LOC: 4S1 07:13 → EDSTATUS 07:30 → 4E2 15:15